=== PATIENT | male | born 1950 | race Caucasian/White ===

== ENCOUNTER 2022-12-23 02:36 | Inpatient (IN) | payer OTHER ==
[~2022-12-23] VITALS: Ht 170.2 cm; Wt 88.9 kg
[2022-12-23] VITALS (11 sets, daily range): BP systolic 76–197; BP diastolic 38–111
--- NOTE | 2022-12-23 02:36 | NUR ---
81 Y/O M presents with SOB x1week. upon arrival [facility] stated pt was seen at [facility] last week with no diagnosis. pt came from home, A&Ox3 and denies any respiratory issues. PMH-pt denies allergies-unobtainable meds-unobtainable
--- NOTE | 2022-12-23 02:36 | NUR ---
PT BIBA ALS BED 7
--- NOTE | 2022-12-23 02:36 | NUR ---
RT at bedside
[2022-12-23] MEDS ORDERED: methylPREDNISolone SS 125 MG/2 ML VIAL IVP ONE (02:45)
[2022-12-23] MEDS ORDERED: ALBUTEROL 0.083% 2.5 MG/3 ML NEBU INH ONE (02:45)
--- NOTE | 2022-12-23 02:50 | NUR ---
labs at bedside
--- NOTE | 2022-12-23 02:50 | NUR ---
xray at bedside
[2022-12-23 03:12] LABS: BASOPHILS # (AUTO) 0.2 K/uL (0.00-0.22); BASOPHILS % (AUTO) 1.7 % (0.0-2.0); EOSINOPHILS # (AUTO) 0.2 K/uL (0-0.4); EOSINOPHILS % (AUTO) 1.6 % (0.0-4.0); HEMATOCRIT 22.8 % (36-52); LYMPHOCYTES # (AUTO) 4.1 K/uL (2.0-11.5); LYMPHOCYTES % (AUTO) 35.8 % (20.5-51.1); MEAN CORPUSCULAR HEMOGLOBIN 30 pg (27-31); MEAN CORPUSCULAR HGB CONC 30 g/dL (33-37); MEAN CORPUSCULAR VOLUME 101.3 fL (80-94); MONOCYTES # (AUTO) 0.4 K/uL (0.8-1.0); MONOCYTES % (AUTO) 3.1 % (1.7-9.3); NEUTROPHILS # (AUTO) 6.6 K/uL (1.8-7.7); NEUTROPHILS % (AUTO) 57.8 % (42.2-75.2); PLATELET COUNT (AUTO) 292 K/uL (140-450); RED BLOOD CELL COUNT(AUTO) 2.25 MIL/uL (4.20-6.10); RED CELL DISTRIBUTION WIDTH 18.3 % (11.6-13.7); WHITE BLOOD COUNT (AUTO) 11.5 K/uL (4.8-10.8)
[2022-12-23 03:19] LABS: HEMOGLOBIN 6.8 g/dL (12.0-18.0)
[2022-12-23] MEDS ORDERED: cefTRIAXone 2,000 MG in DEXTROSE 5% 100 ML IV ONE (03:25)
[2022-12-23] MEDS ORDERED: cefTRIAXone 2,000 MG VIAL ONE (03:30)
--- NOTE | 2022-12-23 03:32 | NUR ---
PT CAME IN ON BIPAP. DUE TO ABG RESULTS PT WAS DOWNGRADED TO 3L NASAL CANNULA. WILL CONTINUE TO MONITOR.
[2022-12-23 04:00] LABS: ALBUMIN 2.7 g/dL (3.4-5.0); ANION GAP 21.7 (8-16); ASPARTATE AMINOTRANSFERASE 38 U/L (15-37); CARBON DIOXIDE 11.8 mmol/L (21-32); CHLORIDE 116 mmol/L (98-107); CREATININE 1.5 mg/dL (0.6-1.3); GLUCOSE 202 mg/dL (74-106); POTASSIUM 4.5 mmol/L (3.5-5.1); TOTAL BILIRUBIN 0.5 mg/dL (0.0-1.0); UREA NITROGEN, BLOOD 33 mg/dL (7-18)
[2022-12-23 04:09] LABS: SODIUM SERUM 145 mmol/L (136-145)
[2022-12-23 04:17] LABS: PROTHROMBIN TIME 12.7 secs (10.8-13.4)
--- NOTE | 2022-12-23 04:24 | NUR ---
blood consent signed by pt. pt AAOx4 at this time. Consent in chart
[2022-12-23] MEDS ORDERED: NACL 0.9% 2,000 ML IV ONE (04:45)
--- NOTE | 2022-12-23 06:15 | NUR ---
UA collected and sent to lab
[2022-12-23] MEDS ORDERED: HYDROcodone/APAP 5/325 MG 1 TAB TAB PO PRN (06:20)
[2022-12-23] MEDS ORDERED: POTASSIUM CHLORIDE 10 MEQ TABER PO PRN (06:20)
[2022-12-23] MEDS ORDERED: MAGNESIUM OXIDE 400 MG TAB PO PRN (06:20)
[2022-12-23] MEDS ORDERED: NACL 0.9% 500 ML IV SCH (06:30)
[2022-12-23] MEDS: BUDESONIDE 0.5 MG/2 ML NEBU INH SCH (06:54)
--- NOTE | 2022-12-23 06:58 | NUR ---
RT at bedside
[2022-12-23] MEDS ORDERED: AZITHROMYCIN 500 MG INJ VIAL IV ONE (07:12)
[2022-12-23] MEDS: AZITHROMYCIN 500 MG in DEXTROSE 5% 250 ML IV SCH (07:16)
--- NOTE | 2022-12-23 07:29 | NUR ---
Pt report given to Christiana PHILLIPS. Transfer of care at this time.
[2022-12-23] MEDS: IPRATROPIUM 0.02% 0.5 MG/2.5 ML NEBU INH SCH ×4 (07:30→20:00)
[2022-12-23] MEDS: ALBUTEROL 0.083% 2.5 MG/3 ML NEBU INH SCH ×3 (07:30→20:00)
--- NOTE | 2022-12-23 07:30 | NUR ---
REPORT RECEIVED FROM JOHN PHILLIPS. ASSUMED CARE AT THIS TIME
--- NOTE | 2022-12-23 07:32 | NUR ---
ABRAHAM held per PM NURSE. "2G ALREADY GIVEN". pharmacy called - no answer.
[2022-12-23] MEDS ORDERED: ATEN100T2 PO (07:44)
[2022-12-23] MEDS ORDERED: CLON-553 PO (07:44)
[2022-12-23] MEDS ORDERED: HYDR100T65 PO (07:44)
[2022-12-23] MEDS ORDERED: LEVO0.1T19 PO (07:44)
--- NOTE | 2022-12-23 07:50 | NUR ---
Patient will be admitted to care of MD CHANEY. Admited to TELE. Will go to room 111B. Belongings list completed. Report to BERNADETTE STILL .
[2022-12-23 08:00] LABS: APPEARANCE,URINE HAZY (CLEAR); BILIRUBIN,URINE NEGATIVE (NEGATIVE); BLOOD, URINE TRACE-I (NEGATIVE); COLOR,URINE YELLOW (YELLOW); LEUKOCYTE ESTERASE ,URINE NEGATIVE (NEGATIVE); NITRITE, URINE NEGATIVE (NEGATIVE); UGLUCOSE NEGATIVE (NEGATIVE)
[2022-12-23 08:18] LABS: RBC,URINE NONE SEEN /HPF (0-5); URINE AMORPHOUS URATE 1+ /HPF (None Seen); WBC,URINE 16-25 (MOD) /HPF (0-5)
--- NOTE | 2022-12-23 08:30 | NUR ---
NOTIFIED DR OF BLOOD IN PTS STOOL. LARGE AMOUNT OF STOOL AND BLOOD. PT STATED THAT HE HAS A ENDOSCOPY AND COLONOSCOPY DONE A WEEK AGO AT [facility] AND THEY DID NOT FIND ANYTHING. PT IS SCHEDULED TO RECEIVE A BLOOD TRANSFUSION THIS MORNING. WILL CONTINUE TO MONITOR.
--- NOTE | 2022-12-23 11:14 | NUR ---
RECEIVED REPORT FROM ER NURSE FOR CONTINUITY OF CARE. PT STABLE UPON TRANSPORT AND NO SIGNS OF DISTRESS. PT IS A&OX4, ON 3L NC, SKIN INTACT, USES WALKER AT HOME BUT ON BED REST HERE DUE TO WEAKNESS AND IS ON A CARDIAC DIET. NO COMPLAINTS OF PAIN . PT HAS AN 20G IN HIS RAC AND A 20G IN HIS L FOREARM THAT ARE BOTH PATENT AND AND INTACT. ALL SAFETY MEASURES IN PLACE INCLUDING BED IN LOW POSITION AND CALL LIGHT WITHIN REACH. WILL CONTINUE TO MONITOR.
[2022-12-23] MEDS: methylPREDNISolone SS 40 MG/ML VIAL IVP SCH ×2 (12:34→18:03)
[2022-12-23] MEDS: MORPHINE SULFATE 4 MG/ML SYR IVP PRN ×2 (13:35→18:31)
--- NOTE | 2022-12-23 19:00 | NUR ---
CALLED INTO PTS ROOM DUE TO HIM STATING HE IS HAVING TROUBLE BREATHING AND NEEDS HELP. CHECK VITAL SIGNS AND THEY WERE WITHIN NORMAL LIMITS EXCEPT HR. CALLED RT AND MESSAGED THE DR TO NOTIFY DR OF ELEVATED HR. HAD TO CALL DR DUE TO PT BECOMING MORE AGITATED AND RECEIVED ORDERS FOR ATIVAN AND METOPROLOL. ADMINISTERED ATIVAN TO CALM THE PATIENT.
[2022-12-23] MEDS ORDERED: LORazepam 2 MG/ML VIAL IVP PRN (19:10)
[2022-12-23] MEDS ORDERED: LORazepam 2 MG/ML VIAL ONE (19:13)
--- NOTE | 2022-12-23 19:15 | NUR ---
ENDORSED PT TO TOP FRAME MAKER NURSE FOR CONTINUITY OF CARE. PT IS STABLE
--- NOTE | 2022-12-23 19:20 | NUR ---
RECEIVED PT FROM BERNADETTE STILL FOR CONTINUITY OF CARE. PT CONFUSED, VERY RESTLESS IN BED. PT HYPOXIC AND UNSTABLE AT 80'S ON ROOM AIR.. RT AT BEDSIDE PUTTING PT ON HI FLOW.PT BLOOD PRESSURE 157/133, HEART RATE ON TELE 160'S AFIB. ALL PRECAUTIONS IN PLACE. CALL LIGHT WITHIN REACH. WILL CLOSELY MONITOR
--- NOTE | 2022-12-23 19:38 | NUR ---
RECEIVED ORDER FROM DR. WALTERS TO TRANSFER PT TO ICU AND START JONATHON MARTÍNEZ.
--- NOTE | 2022-12-23 19:50 | NUR ---
TRANSFERRED PT TO ICU.PT REFUSING HI FLOW AND KEEPS ON REMOVING CANNULA. CALLED FAMILY, VIKKI THORPE, VOICEMAIL LEFT TO CALL BACK.
--- NOTE | 2022-12-23 20:00 | NUR ---
Received pt from [facility] due to shortness of breadth, hr 120's to 140's restlessness hypoxic drive very restless low O2 sat 60% to 70% inaccurate, but pt refused Bipap, high flow combative, education given, support implored but pt still refused, very unstable, unable to get to the family left several messages for them to call back. Bedside report received from Jemal STILL at the bedside mentioned low HGB 1 unit PRBC given is still low as at the time of transfer HGG [address] Robby Nagy consulted.
[2022-12-23] MEDS ORDERED: DILTIAZEM 125 MG in DEXTROSE 5% 100 ML IV SCH (20:10)
[2022-12-23] MEDS ORDERED: DILTIAZEM 125 MG/25 ML VIAL IV ONE (20:20)
[2022-12-23 20:29] LABS: BASOPHILS % (AUTO) 0.1 % (0.0-2.0); HEMATOCRIT 22.6 % (36-52); LYMPHOCYTES # (AUTO) 1.3 K/uL (2.0-11.5); LYMPHOCYTES % (AUTO) 7.5 % (20.5-51.1); MEAN CORPUSCULAR HEMOGLOBIN 30 pg (27-31); MEAN CORPUSCULAR HGB CONC 30 g/dL (33-37); MEAN CORPUSCULAR VOLUME 100.3 fL (80-94); MONOCYTES # (AUTO) 0.2 K/uL (0.8-1.0); MONOCYTES % (AUTO) 1.2 % (1.7-9.3); NEUTROPHILS # (AUTO) 15.2 K/uL (1.8-7.7); NEUTROPHILS % (AUTO) 91.2 % (42.2-75.2); PLATELET COUNT (AUTO) 302 K/uL (140-450); RED BLOOD CELL COUNT(AUTO) 2.25 MIL/uL (4.20-6.10)
--- NOTE | 2022-12-23 20:34 | NUR ---
pt intubated at the bedside by ER DR DOTTIE CHEUNG successfully, ETT to ventilator rate 28 FIO2 100% TV 500 PEEP 5 O2 sat 100% pt tolerating well
[2022-12-23 20:35] LABS: HEMOGLOBIN 6.7 g/dL (12.0-18.0)
[2022-12-23 20:36] LABS: WHITE BLOOD COUNT (AUTO) 16.7 K/uL (4.8-10.8)
--- NOTE | 2022-12-23 20:38 | NUR ---
Pt's called back updated by this RN and Dr Rocha,
[2022-12-23] MEDS ORDERED: EPINEPHrine PFS 0.1 MG/ML SYR IVP ONE (20:43)
[2022-12-23] MEDS ORDERED: CODE BLUE PARTICIPANT 1 EA MISC MC ONE (20:43)
[2022-12-23] MEDS ORDERED: METOPROLOL 25 MG TAB PO SCH (21:00)
--- NOTE | 2022-12-23 21:05 | NUR ---
Dr EVANS critical care MD consulted came to unit updated on pt's condition aware that pt coded twice, more labs orders added antibiotics, aware of low HGB also to transfuse 2 units. blood sugar checked was 151 also MD updates family over the phone
--- NOTE | 2022-12-23 21:35 | NUR ---
Pt's daughter here to visit pt updates on pt's condition and she said that her father does not want to intubated "be on the machine" Dr Bustamante discussed further with that pt is FULL CODE and there is no advance directives in the chart stating otherwise so reason pt intubated to protect his airway.
[2022-12-23] MEDS ORDERED: NOREPINEPHRINE 4 MG in DEXTROSE 5% 250 ML IV PRN (21:40)
[2022-12-23] MEDS ORDERED: SODIUM BICARBONATE 8.4% PFS 50 MEQ/50 ML SYR IVP SCH ×2 (21:50→22:15)
[2022-12-23] MEDS ORDERED: SODIUM BICARBONATE 8.4% PFS 50 MEQ/50 ML SYR IVP ONE (21:53)
[2022-12-23] MEDS ORDERED: DEXMEDETOMIDINE HCL 100 MCG/ML 2 ML VIAL IV ONE (22:11)
[2022-12-23] MEDS: OCTREOTIDE ACETATE 1.25 MG in NACL 0.9% 250 ML IV SCH (22:35)
[2022-12-23] MEDS ORDERED: VANCOMYCIN 1GM/DEXT 5% PREMIX 200 ML IV ONE (22:35)
[2022-12-23] MEDS: PANTOPRAZOLE 80 MG in NACL 0.9% 100 ML IVP SCH (22:35)
[2022-12-23] MEDS ORDERED: SODIUM BICARBONATE 8.4% 100 MEQ in DEXTROSE 5% 1,000 ML IV SCH (22:35)
[2022-12-23] MEDS ORDERED: VANCOMYCIN PER PHARMACY MC PRN (22:35)
[2022-12-23 22:39] LABS: BASOPHILS % (AUTO) 0.1 % (0.0-2.0); EOSINOPHILS # (AUTO) 0.1 K/uL (0-0.4); EOSINOPHILS % (AUTO) 0.4 % (0.0-4.0); LYMPHOCYTES # (AUTO) 1.7 K/uL (2.0-11.5); LYMPHOCYTES % (AUTO) 7.8 % (20.5-51.1); MEAN CORPUSCULAR HEMOGLOBIN 30 pg (27-31); MEAN CORPUSCULAR HGB CONC 30 g/dL (33-37); MEAN CORPUSCULAR VOLUME 100.8 fL (80-94); MONOCYTES # (AUTO) 0.6 K/uL (0.8-1.0); MONOCYTES % (AUTO) 2.6 % (1.7-9.3); NEUTROPHILS # (AUTO) 19.4 K/uL (1.8-7.7); NEUTROPHILS % (AUTO) 89.1 % (42.2-75.2); PLATELET COUNT (AUTO) 231 K/uL (140-450); RED BLOOD CELL COUNT(AUTO) 1.59 MIL/uL (4.20-6.10); RED CELL DISTRIBUTION WIDTH 18.4 % (11.6-13.7); WHITE BLOOD COUNT (AUTO) 21.8 K/uL (4.8-10.8)
[2022-12-23 22:43] LABS: HEMOGLOBIN 4.7 g/dL (12.0-18.0)
[2022-12-23] MEDS ORDERED: VANCOMYCIN 1,000 MG VIAL ONE (22:44)
[2022-12-23] MEDS ORDERED: PIPERACILLIN/TAZOBACTAM 3.375 GM VIAL IV ONE (22:45)
--- NOTE | 2022-12-23 22:50 | NUR ---
Dr Bustamante notified of the critical value CO2 8.8 CREATENINE 2.13 bun 56 iglesias inserted no urine output, pt received Sodium bicarb 3 ampules 300 meq plus started on Bicarb drip, NS 3liters total, low HGB 4.7 and HCT 16 total blood transfusion order PRBC 3 UNITS , Protonix and Sandostatin IV drip added, consults Dr Cardona, Human Resources Trainee and GI MD
[2022-12-23 22:54] LABS: ALBUMIN 2.2 g/dL (3.4-5.0); ASPARTATE AMINOTRANSFERASE 137 U/L (15-37); CHLORIDE 119 mmol/L (98-107); CREATININE 2.1 mg/dL (0.6-1.3); GLUCOSE 182 mg/dL (74-106); POTASSIUM 4.8 mmol/L (3.5-5.1); SODIUM SERUM 153 mmol/L (136-145); TOTAL BILIRUBIN 0.6 mg/dL (0.0-1.0); UREA NITROGEN, BLOOD 56 mg/dL (7-18)
[2022-12-23 22:58] LABS: CARBON DIOXIDE 8.8 mmol/L (21-32)
[2022-12-23] MEDS: PIPERACILLIN/TAZOBACTAM 3.375 GM in DEXTROSE 5% 50 ML IV SCH (23:00)
--- NOTE | 2022-12-23 23:00 | NUR ---
CODE BLUE Patient coded twice @2043 pm to 2054 then second 2056 to 2102 received total Epinephrine 2 amps successfully recovered, Levophed drip started, NS bolus 2 liters, Central line inserted by DR EVANS via right IJ ultrasound guided asceptic chest Xray done and order received OK to USE.
[2022-12-23 23:10] LABS: PROTHROMBIN TIME 15.5 secs (10.8-13.4)
--- NOTE | 2022-12-23 23:10 | NUR ---
Pt's son NICHOLAS and girlfriend visit at the bedside updates on pt's condition and emotional support for comfort. No complain said will be back in AM with pt's .
[2022-12-24] VITALS (31 sets, daily range): BP systolic 94–156; BP diastolic 34–112
[2022-12-24] MEDS ORDERED: OCTREOTIDE ACETATE 1000 MCG/5 ML VIAL ONE (00:55)
[2022-12-24] MEDS ORDERED: PANTOPRAZOLE 40 MG INJ VIAL ONE (00:56)
[2022-12-24] MEDS ORDERED: OCTREOTIDE ACETATE 100 MCG/ML VIAL ONE (01:11)
[2022-12-24] MEDS: methylPREDNISolone SS 40 MG/ML VIAL IVP SCH ×4 (01:56→18:44)
[2022-12-24] MEDS: PANTOPRAZOLE 80 MG in NACL 0.9% 100 ML IVP SCH ×3 (02:00→18:44)
[2022-12-24] MEDS: OCTREOTIDE ACETATE 1.25 MG in NACL 0.9% 250 ML IV SCH (02:00)
--- NOTE | 2022-12-24 04:00 | NUR ---
2 units PRBC given this shift no reaction noted pt tolerated well vitals signs stable pending one unit more to receive not ready from blood bank
[2022-12-24] MEDS ORDERED: fentaNYL citrate 0.05 MG/ML VIAL ONE (04:15)
[2022-12-24] MEDS: fentaNYL citrate 1 MG in NACL 0.9% 80 ML IV PRN ×2 (04:45→20:56)
--- NOTE | 2022-12-24 05:25 | NUR ---
[facility] (APPLIQUER ) PAGED PENDING CALL BACK TO REPORT CRITICAL ABG RESULTS
[2022-12-24 06:18] LABS: BASOPHILS % (AUTO) 0.1 % (0.0-2.0); HEMATOCRIT 27.8 % (36-52); HEMOGLOBIN 8.8 g/dL (12.0-18.0); LYMPHOCYTES # (AUTO) 1.1 K/uL (2.0-11.5); MEAN CORPUSCULAR HEMOGLOBIN 30 pg (27-31); MEAN CORPUSCULAR HGB CONC 32 g/dL (33-37); MEAN CORPUSCULAR VOLUME 93.6 fL (80-94); MONOCYTES # (AUTO) 1.7 K/uL (0.8-1.0); MONOCYTES % (AUTO) 4.6 % (1.7-9.3); NEUTROPHILS # (AUTO) 33.2 K/uL (1.8-7.7); PLATELET COUNT (AUTO) 186 K/uL (140-450); RED BLOOD CELL COUNT(AUTO) 2.97 MIL/uL (4.20-6.10)
[2022-12-24 06:33] LABS: WHITE BLOOD COUNT (AUTO) 36.1 K/uL (4.8-10.8)
[2022-12-24 07:13] LABS: LYMPHOCYTES % (AUTO) 3.2 % (20.5-51.1); NEUTROPHILS % (AUTO) 92.1 % (42.2-75.2)
--- NOTE | 2022-12-24 07:24 | NUR ---
Endorsed pt to Carolta RN at the bedside went over pt's condition, code blue incidence family aware, pending 1unit blood transfusion, sputum and urine culture. Checked the drips and rate, pt eyes open and follow verbal command nods his head, on ventilator FIO2 100% IV sites vitals signs stable no sign of distress no urine output Dr Bustamante aware total report for continuity of care.
[2022-12-24 07:28] LABS: ALBUMIN 2.1 g/dL (3.4-5.0); ANION GAP 27.7 (8-16); ASPARTATE AMINOTRANSFERASE 337 U/L (15-37); CARBON DIOXIDE 11.1 mmol/L (21-32); CHLORIDE 113 mmol/L (98-107); CREATININE 2.4 mg/dL (0.6-1.3); GLUCOSE 263 mg/dL (74-106); MAGNESIUM 1.5 mg/dL (1.8-2.4); POTASSIUM 4.8 mmol/L (3.5-5.1); SODIUM SERUM 147 mmol/L (136-145); TOTAL BILIRUBIN 0.7 mg/dL (0.0-1.0)
[2022-12-24 07:40] LABS: UREA NITROGEN, BLOOD 63 mg/dL (7-18)
[2022-12-24] MEDS: IPRATROPIUM 0.02% 0.5 MG/2.5 ML NEBU INH SCH ×5 (08:00→23:06)
[2022-12-24] MEDS: ALBUTEROL 0.083% 2.5 MG/3 ML NEBU INH SCH ×5 (08:00→23:06)
[2022-12-24] MEDS: BUDESONIDE 0.5 MG/2 ML NEBU INH SCH ×2 (08:00→19:30)
[2022-12-24 08:06] LABS: PROTHROMBIN TIME 13.6 secs (10.8-13.4)
[2022-12-24] MEDS: PROPOFOL 1000 MG/100 ML PREMIX 100 ML IV PRN ×2 (09:03→20:51)
--- NOTE | 2022-12-24 10:53 | NUR ---
PATIENT HAS BEEN SCREENED AND CATEGORIZED HIGH NUTRITION RISK. PATIENT WILL BE SEEN WITHIN 1-2 DAYS OF ADMISSION. 12/23/22-12/25/[address]
[2022-12-24] MEDS: AZITHROMYCIN 500 MG in DEXTROSE 5% 250 ML IV SCH (12:00)
[2022-12-24 12:22] LABS: BASOPHILS % (AUTO) 0.1 % (0.0-2.0); HEMATOCRIT 29.6 % (36-52); HEMOGLOBIN 9.7 g/dL (12.0-18.0); LYMPHOCYTES # (AUTO) 0.9 K/uL (2.0-11.5); MEAN CORPUSCULAR HEMOGLOBIN 29 pg (27-31); MEAN CORPUSCULAR HGB CONC 33 g/dL (33-37); MEAN CORPUSCULAR VOLUME 89.8 fL (80-94); MONOCYTES # (AUTO) 1.1 K/uL (0.8-1.0); MONOCYTES % (AUTO) 3.3 % (1.7-9.3); NEUTROPHILS # (AUTO) 30.8 K/uL (1.8-7.7); PLATELET COUNT (AUTO) 126 K/uL (140-450); RED CELL DISTRIBUTION WIDTH 17.3 % (11.6-13.7)
[2022-12-24 12:27] LABS: WHITE BLOOD COUNT (AUTO) 32.8 K/uL (4.8-10.8)
[2022-12-24 12:42] LABS: ALBUMIN 2.2 g/dL (3.4-5.0); ANION GAP 23.2 (8-16); ASPARTATE AMINOTRANSFERASE 313 U/L (15-37); CARBON DIOXIDE 15.4 mmol/L (21-32); CHLORIDE 114 mmol/L (98-107); CREATININE 2.8 mg/dL (0.6-1.3); GLUCOSE 178 mg/dL (74-106); POTASSIUM 4.6 mmol/L (3.5-5.1); SODIUM SERUM 148 mmol/L (136-145); TOTAL BILIRUBIN 1.1 mg/dL (0.0-1.0)
[2022-12-24 12:45] LABS: UREA NITROGEN, BLOOD 75 mg/dL (7-18)
[2022-12-24 12:50] LABS: LYMPHOCYTES % (AUTO) 2.7 % (20.5-51.1); NEUTROPHILS % (AUTO) 93.9 % (42.2-75.2)
[2022-12-24] MEDS: PIPERACILLIN/TAZOBACTAM 3.375 GM in DEXTROSE 5% 50 ML IV SCH ×2 (13:00→21:46)
[2022-12-24] MEDS: SODIUM BICARBONATE 8.4% 100 MEQ in DEXTROSE 5% 1,000 ML IV SCH (13:30)
--- NOTE | 2022-12-24 15:27 | NUR ---
12/24/22 RD INITIAL ASSESSMENT COMPLETED. PLEASE REFER TO NUTRITION ASSESSMENT UNDER CARE ACTIVITY FOR ESTIMATED NUTRITIONAL NEEDS. 1. CONTINUE GLUCERNA @ 60 ML/HR; FWF 50 ML Q6H PT TOLERATES PER MD. -IF GLUCERNA NOT AVAILABLE DUE TO BACKORDERED GLUCERNA, RECOMMEND VITAL AF 1.2 WITH A GOAL RATE OF 60 ML/HR, STARTING AT 10 ML/HR AND INCREASING BY 10 ML Q4H UNTIL GOAL RATE IS REACHED;FWF 200 ML Q8H OR PER MD 2. MONITOR FOR GI SYMPTOMS. 3. RD TO FOLLOW-UP 2-3 DAYS, HIGH RISK ZAYDA CATES RD
--- NOTE | 2022-12-24 15:42 | NUR ---
Reported ABG results to Dr. Bustamante. Per Dr. Bustamante, drop rate down to 24. RT made aware.
--- NOTE | 2022-12-24 18:50 | NUR ---
DR. GR ROUNDING AT BEDSIDE. ORDERS RECEIVED FOR 25% ALBUMIN 100ML ONCE, METOLAZONE 10MG DAILY, LASIX 100MG IVP ONCE, LASIX DRIP AT 20MG/HR. AFTER SIX HOURS ON LASIX DRIP, IF PT IS NOT MAKING MORE THAN 50ML/HR OF URINE, STOP LASIX DRIP AND NOTIFY DR. GR TO GET DIALYSIS ORDERS.
[2022-12-24] MEDS ORDERED: VANCOMYCIN 1.25GM PREMIX 250 ML IV SCH (19:00)
[2022-12-24] MEDS ORDERED: ALBUMIN HUMAN 25% 100 ML IV ONE (19:15)
[2022-12-24] MEDS: FUROSEMIDE 20 MG/2 ML VIAL IVP ONE (19:15)
--- NOTE | 2022-12-24 20:02 | NUR ---
rECEIVED REPOR, THE PATIENT IS SADATED, WITH FANTANL AT 0.6,. hE IS IN RESTRAINTPROTONIX INFUSING AT 8MCG /HR, SANDOSTADIN WILL COMPLETED FOR THE LAST BAG, NS AT 75ML/HR, NEED TO START LASIX AND OG TUBE FEEDING PER DAY SHIFT RN.
--- NOTE | 2022-12-24 20:06 | NUR ---
PER ABG RESULTS, RR DROPPED FROM 28 TO 24 ON VENTILATOR SETTINGS. RN AWARE.
[2022-12-24] MEDS ORDERED: FUROSEMIDE 100 MG/10 ML VIAL ONE ×2 (20:45→20:57)
[2022-12-24] MEDS: FUROSEMIDE 100 MG in DEXTROSE 5% 90 ML IV SCH ×2 (21:19→21:42)
[2022-12-24] MEDS: LACTULOSE 20 GM/30 ML UDC PO SCH (21:21)
[2022-12-24 21:41] LABS: ALBUMIN 2.6 g/dL (3.4-5.0); ANION GAP 23.1 (8-16); ASPARTATE AMINOTRANSFERASE 247 U/L (15-37); CARBON DIOXIDE 15.7 mmol/L (21-32); CHLORIDE 113 mmol/L (98-107); GLUCOSE 159 mg/dL (74-106); POTASSIUM 4.8 mmol/L (3.5-5.1); SODIUM SERUM 147 mmol/L (136-145); TOTAL BILIRUBIN 0.7 mg/dL (0.0-1.0)
[2022-12-24 21:44] LABS: HEMOGLOBIN 8.7 g/dL (12.0-18.0); LYMPHOCYTES % (AUTO) 2.8 % (20.5-51.1); MEAN CORPUSCULAR HEMOGLOBIN 28 pg (27-31); MEAN CORPUSCULAR HGB CONC 31 g/dL (33-37); MEAN CORPUSCULAR VOLUME 91.8 fL (80-94); MONOCYTES % (AUTO) 2.6 % (1.7-9.3); NEUTROPHILS # (AUTO) 34.6 K/uL (1.8-7.7); NEUTROPHILS % (AUTO) 94.6 % (42.2-75.2); PLATELET COUNT (AUTO) 135 K/uL (140-450); RED BLOOD CELL COUNT(AUTO) 3.05 MIL/uL (4.20-6.10); RED CELL DISTRIBUTION WIDTH 17.5 % (11.6-13.7); UREA NITROGEN, BLOOD 81 mg/dL (7-18)
[2022-12-24 21:48] LABS: WHITE BLOOD COUNT (AUTO) 36.6 K/uL (4.8-10.8)
[2022-12-25] VITALS (28 sets, daily range): BP systolic 81–150; BP diastolic 52–111
[2022-12-25] MEDS: methylPREDNISolone SS 40 MG/ML VIAL IVP SCH ×4 (00:08→20:12)
[2022-12-25] MEDS ORDERED: NOREPINEPHRINE 4 MG/4 ML VIAL IV ONE (00:36)
--- NOTE | 2022-12-25 02:40 | NUR ---
PATIENT HAS 75ML URINE AFTER 100MG LASIX DRIPS COMPLETED, DR. GR NOTIFED, SHE STATES THAT STOP THE LASIX DRIPS.
[2022-12-25] MEDS: IPRATROPIUM 0.02% 0.5 MG/2.5 ML NEBU INH SCH ×6 (03:30→23:11)
[2022-12-25] MEDS: ALBUTEROL 0.083% 2.5 MG/3 ML NEBU INH SCH ×6 (03:30→23:11)
[2022-12-25] MEDS ORDERED: fentaNYL citrate 0.05 MG/ML VIAL ONE ×2 (04:51→13:01)
[2022-12-25] MEDS: PIPERACILLIN/TAZOBACTAM 3.375 GM in DEXTROSE 5% 50 ML IV SCH ×3 (05:00→20:14)
[2022-12-25] MEDS: AZITHROMYCIN 500 MG in DEXTROSE 5% 250 ML IV SCH (06:59)
[2022-12-25 07:07] LABS: FOLIC ACID 8.3 ng/mL (>3.0)
--- NOTE | 2022-12-25 07:30 | NUR ---
Received report from voltage tester nurse Jarred. Received pt sedated. ETT to vent settings AC VC TV 500 rate 24 PEEP 5 FiO2@24%. A. Fib on monitor. OG-tube intact and patent infusing Vital @40ml/hr with FWF 50ml Q6hr. Beckman catheter in place and draining to gravity. Central line on Right IJ intact and patent infusing Fentanyl@ 2.5mcg/kg/hr, Propofol @10mcg/kg/min, Levophed@8mcg/min, and Sodium Bicarb@75ml/hr. Bilat soft wrist restraints in place with no signs of injury. Safety precautions in place.
[2022-12-25 07:44] LABS: ALBUMIN 2.7 g/dL (3.4-5.0); ANION GAP 22.7 (8-16); ASPARTATE AMINOTRANSFERASE 146 U/L (15-37); CARBON DIOXIDE 15.1 mmol/L (21-32); CHLORIDE 111 mmol/L (98-107); CREATININE 3.5 mg/dL (0.6-1.3); GLUCOSE 162 mg/dL (74-106); MAGNESIUM 1.4 mg/dL (1.8-2.4); POTASSIUM 4.8 mmol/L (3.5-5.1); SODIUM SERUM 144 mmol/L (136-145); TOTAL BILIRUBIN 0.5 mg/dL (0.0-1.0)
[2022-12-25 07:46] LABS: UREA NITROGEN, BLOOD 99 mg/dL (7-18)
[2022-12-25] MEDS: MAG SULF 2000 MG/WATER PREMIX 50 ML IV PRN (07:57)
[2022-12-25] MEDS: LACTULOSE 20 GM/30 ML UDC PO SCH ×2 (08:27→20:12)
[2022-12-25] MEDS: PANTOPRAZOLE 80 MG in NACL 0.9% 100 ML IVP SCH (08:27)
[2022-12-25 08:28] LABS: RED BLOOD CELL COUNT(AUTO) 2.05 MIL/uL (4.20-6.10)
[2022-12-25 08:31] LABS: MEAN CORPUSCULAR HEMOGLOBIN 29 pg (27-31); MEAN CORPUSCULAR HGB CONC 32 g/dL (33-37); MEAN CORPUSCULAR VOLUME 89.6 fL (80-94); PLATELET COUNT (AUTO) 106 K/uL (140-450); RED CELL DISTRIBUTION WIDTH 17.3 % (11.6-13.7)
--- NOTE | 2022-12-25 08:46 | NUR ---
DC PLANNIN YRS OLD MALE PATIENT WAS ADMITTED FROM HOME WITH A DX OF COPD EXACERBATION. PATIENT HAS A HX OF CHRONIC A-FIB, HTN, ANEMIA AND HYPOTHYROIDISM. PATIENT INTUBATED SEDATED FI02 24% . H/H 5.9/18.4 WBC 30.[address] LADD PERFORMED FOR POSSIBLE EGD SHOWED VASCULAR LESION IN THE SECOND AND 3RD PART OF DUODENUM AND SUCCESSFUL CONTROL WITH THE HEMOCLIPS AND EPINEPHRIN INJECTION. NEPHRO CONSULTED FOR HEMODIALYSIS . ON LEVOPHED, PROPOFOL ,FENTANYL DRIPS AND IV ABX ZOSYN AND ZITHROMAX. NEPHRO GI AND PULMO FOLLOWING. DC PLAN PER PATIENT RESPOND TO THE TREATMENT. CM TO FOLLOW Addendum: 12/27/22 at 0905 by Anabella Jama RN DC PLANNING: PATIENT STILL INTUBATED SEDATED FIO2 21%. WBC 23.5 H/H 9.5/29.0 CONTINUE IV ABX ZOSYN AND ZITHROMAX AND IV FERRLECIT. ON LEVOPHED AND PROPOFOL DRIP. GI,PULMO AND NEPHRO FOLLOWING. CM TO FOLLOW Addendum: 12/27/22 at 1437 by Anabella Jama RN DC PLANNING: PATIENT HAS AN ORDER TO TRANSFER TO [facility] FOR GI BLEEDING OF OBSCURE ORIGIN. FAXED TO [facility] , [facility], [facility] [place], [facility] . CM CALLED PATIENT'S UPDATED THE TRANSFER STATUS. CM TO FOLLOW Addendum: 12/27/22 at 1740 by Anabella Jama RN DC PLANNING: RECEIVED A CALL FROM [facility] AND [facility] STATED DECLINED THE CASE. STILL AWAITING FOR [facility] STILL REVIEWING. CM TO FOLLOW Addendum: 12/28/22 at 1210 by Anabella Jama RN DC PLANNING: RECEIVED A MESSAGE FROM [facility] NAME TYREE STATED THEIR GI DECLINED THE CASE STATED PT'S NEEDS TERTIARY CARE. CALLED [facility] STATED SHE HAS 23 PATIENT WAITING FOR THE BED AND HE IS ON THE LIST [facility] STATED THEY ARE ACCEPTING TRAUMA , NSTEMI AT THIS TIME THEY ARE FULL AND TO CALL BACK AT 2PM. CALLED PT'S ROSALEE UPDATED THE SITUATION, SHE STATED WILL REACH OUT HIS PCP DR DAWSON TO HELP WITH THE TRANSFER [place] CM TO FOLLOW Addendum: 12/28/22 at 1410 by Anabella Jama RN DC PLANNING: CALLED PT'S INSURANCE [employer] SPOKE WITH CLARY STATED TO FAX IT TO [facility] , STILL AWAITING FOR [facility]. ORDERED RAPID COVID TEST. CM TO FOLLOW Addendum: 12/28/22 at 1704 by Anabella Jama RN DC PLANNING: RECEIVED A CALL FROM [facility] SPOKE WITH [facility] AT TRANSFER [facility] STATED DUE TO INPT CAPACITY DECLINE THE CASE. [facility] NO BED AVAILABLE , [facility] [phone] SPOKE WITH AUDIE STATED THEY DON'T DO A DOUBLE LUMEN CLIP PROCEDURE FOR GI BLEED AND DECLINED THE CASE AND RECOMMENDED [facility] . FAXED TO [phone]. CM TO FOLLOW Addendum: 12/29/22 at 1150 by Anabella Jama RN DC PLANNING: CM CALLED [facility] SPOKE WITH ISHAN STATED NO BED AVAILABLE AT THIS TIME, CALLED [facility] SPOKE WITH JESUS STATED THEY ARE AT THEIR CAPACITY. [facility] SPOKE WITH JANETH STATED THEIR GI DR DECLINED THE CASE. NOTIFIED PT'S VIKKI [phone] VERBALIZED UNDERSTANDING. CM TO FOLLOW Addendum: 01/02/23 at 1115 by Anabella Jama RN DC PLANNING: STILL INTUBATED SEDATED FIO2 21% PEEP 5. CONTINUED HEMODIALYSIS AND IV ABX ZOSYN AND ERYTHROMYCIN AND FERRLECIT IV. LAB 33.3 K+ 3.1 B/C 44/3.1 AND H/H 8.4 /25.4 ON RESTRAINTS. PULMO,NEPHRO, CARDIO AND GI FOLLOWING . DC PLAN PER PATIENT RESPOND TO THE TREATMENT. CM TO FOLLOW Addendum: 01/04/23 at 1236 by Anabella Jama RN DC PLANNING: PATIENT EXTUBATED ON FACE MASK. WBC 20.3 H/H STABLE 8.5/27.0 CONTINUED IV ABX ZOSYN CONTINUE HEMODIALYSIS. PULMO GI AND NEPHRO FOLLOWING. CM TO FOLLOW
[2022-12-25 08:47] LABS: HEMATOCRIT 18.4 % (36-52); HEMOGLOBIN 5.9 g/dL (12.0-18.0)
--- NOTE | 2022-12-25 08:47 | NUR ---
Received call from lab for critical results. Paged Dr. Bess. Awaiting for call back for orders.
[2022-12-25 08:56] LABS: EOSINOPHILS % (MANUAL) 1 % (0-4); LYMPHOCYTES % (MANUAL) 2 % (20-46); MONOCYTES % (MANUAL) 3 % (5-12)
[2022-12-25] MEDS ORDERED: metOLazone 5 MG TAB PO SCH (09:00)
--- NOTE | 2022-12-25 09:19 | NUR ---
Paged Dr. Bustamante regarding critical lab results and updates of melena last night per noc shift nurse. Per Dr. Bustamante, stop OG-tube feeding, contact Dr. Donato regarding EGD today, and new order RBC scan. Orders noted and carried out.
--- NOTE | 2022-12-25 09:30 | NUR ---
Dr. Acosta at bedside examining patient. Dr. Kay consulted for hemodialysis catheter placement and pt to start HD when placed.
[2022-12-25] MEDS ORDERED: NACL 0.9% 1,000 ML IV SCH (09:40)
[2022-12-25] MEDS ORDERED: CALCIUM GLUCONATE 10% 1,000 MG in NACL 0.9% 50 ML IV SCH (09:55)
[2022-12-25] MEDS ORDERED: CALCIUM GLUC 1 GM/50 mL NS BAG 50 ML IV SCH (10:00)
[2022-12-25] MEDS ORDERED: CALCIUM GLU 1 GM/100 mL NS BAG 100 ML IV SCH (10:00)
--- NOTE | 2022-12-25 11:44 | NUR ---
Dr. Bess at bedside examining patient. Gave updates. New order to renew Zosyn.
--- NOTE | 2022-12-25 11:52 | NUR ---
SKIN ASSESSMENT DONE. PT ADMIT WITH SKIN TEAR TO RIGHT FOREARM, AREA DRY, YELLOW THIN SCAR TISSUE 2X3X0.1CM, NO ODOR.CICI WOUND SKIN ECCHYMOSIS. LEFT ARM ECCHYMOSIS, TRUCK OF BODY AND ALL LIMBS COLS TO TOUCH. BLE MOTTLED INTACT SKIN. CAPILLARY REFILLED >3SEC. BILATERAL HEELS BLANCHABLE REDNESS. PT. WITH LOW VERA SCALE AT HIGH RISK, CONTINUE TO FOLLOW PRESSURE INJURY PREVENTION INTERVENTIONS. POC DISCUSSED WITH PRIMARY RN GARTH. -APPLY VERSATEL DRESSING TO RIGHT FOREARM/WRIST CHANGE Q5DAYS AND PRN IF SOILING. -APPLY HYDRAGUARD TO TRUNK OF BODY AND ALL LIMBS BID -APPLY FOAM DRESSING TO SACRALCOCCYX WITH OFFLOADING PREVENTION -POSITIONING: TURN AND REPOSITION PATIENT Q 2H OR SOONER USE PILLOWS TO KEEP BONY PROMINENCES FROM DIRECT CONTACT WITH SURFACES USE REPOSITIONING WEDGES TO PROVIDE 30-DEGREE ANGLE FOR SIDE LYING POSITIONS OFFLOADING OR FOAM DRESSING TO ALL TUBING TO PREVENT MEDICAL DEVICES RELATED PRESSURE INJURY -RE-EVALUATING AND MANAGING INCONTINENCE MONITOR SKIN CONDITION DURING POSITION CHANGE DO NOT MASSAGE REDNESS, BONY PROMINENCES FREQUENT CICI-CARE AND PROVIDE BARRIER CREAMS PRN IF SOILING MOISTURE CONTROL BY OFFER BED WOMACK/URINAL /ABSORBENT PAD TO WICK AND HOLD MOISTURE KEEP SKIN DRY AND PROTECT FROM FRICTION -MANAGE FRICTION/SHEAR/MOBILITY KEEP HOB AT THE LOWEST LEVEL OF ELEVATION NO MORE THAN 30 DEGREE UNLESS OTHERWISE CONTRAINDICATED USE LIFT SHEET OR TRANSFER DEVICE TO MOVE PATIENT AND PREVENT LATERAL SHEER. PROTECT HEELS, ELBOWS BONY PROMINENCES WITH SKIN BERRIES OR FOAM DRESSING IF EXPOSED TO FRICTION OFFLOAD BILATERAL HEELS BY PLACING PILLOWS UNDER CALVES AT ALL TIMES, UNLESS OTHERWISE CONTRAINDICATED -PRESSURE REDISTRIBUTION SURFACE THERAPY RONNIE ISOFLEX MATTRESS -NUTRITION: PLEASE FOLLOW RD RECOMMENDATIONS AND OFFER NUTRITION SUPPLEMENTS IF ORDERED. PLEASE CONTACT WOUND CARE NURSE FOR ANY QUESTION AND CHANGE OF WOUND CONDITION.
--- NOTE | 2022-12-25 12:12 | NUR ---
Dr. Donato at bedside examining patient. Pt for EGD.
[2022-12-25] MEDS: HYDRAGUARD CREAM TP SCH (12:36)
[2022-12-25] MEDS ORDERED: diphenhydrAMINE 50 MG/ML VIAL ONE (13:01)
[2022-12-25] MEDS ORDERED: MIDAZOLAM 5 MG/5 ML VIAL ONE (13:02)
--- NOTE | 2022-12-25 13:05 | NUR ---
EGD done at bedside. on the phone with Dr. Donato and updated.
--- NOTE | 2022-12-25 13:30 | NUR ---
Nuclear med bleed scan at bedside per Dr. Donato ordered. Awaiting for completion of EGD.
[2022-12-25] MEDS: fentaNYL citrate - 50mL vial 2.5 MG in NACL 0.9% 200 ML IV PRN (13:34)
--- NOTE | 2022-12-25 13:40 | NUR ---
EGD completed. Attempted to call , but no answer. Left a voice message to call back for updates with call back number. Addendum: 12/25/22 at 1406 by Dora Barajas RN New order from Dr. Donato to restart tube feeding. CBC Q6hx4 after second unit of PRBC completed.
--- NOTE | 2022-12-25 13:41 | NUR ---
Dr. Donato cancelled nuclear med bleed scan.
[2022-12-25] MEDS ORDERED: GLUCAGON 1 MG VIAL ONE (13:50)
[2022-12-25] MEDS ORDERED: EPINEPHrine PFS 0.1 MG/ML SYR IVP ONE (13:50)
[2022-12-25] MEDS: BUDESONIDE 0.5 MG/2 ML NEBU INH SCH ×2 (14:09→19:30)
--- NOTE | 2022-12-25 14:10 | NUR ---
2 units of PRBC completed with no adverse reaction.
[2022-12-25] MEDS: PROPOFOL 1000 MG/100 ML PREMIX 100 ML IV PRN ×2 (14:23→20:21)
--- NOTE | 2022-12-25 14:30 | NUR ---
DC PLANNING ASSESSMENT COMPLETE PLEASE REFER TO ASSESSMENT FOR DETAILS VIKKI PARSONS TENTATIVE DC PLAN IS TO RETURN HOME WITH FAMILY PROVIDING TRANSPORTATION WHEN MEDICALLY STABLE. Addendum: 12/26/22 at 1617 by Chanel HARPER Amended: Links added.
--- NOTE | 2022-12-25 14:49 | NUR ---
Received phone call from Scar Humphrey and gave updates. All questions answered.
[2022-12-25] MEDS: SODIUM BICARBONATE 8.4% 100 MEQ in DEXTROSE 5% 1,000 ML IV SCH (17:50)
--- NOTE | 2022-12-25 18:45 | NUR ---
Dr. Bustamante at bedside. New order to discontinue sodium bicarb fluid.
--- NOTE | 2022-12-25 19:00 | NUR ---
Dr. Kay at bedside for dialysis catheter placement. Dialysis access site on left IJ. CXR at bedside and Dr. Kay viewed. Per ronnie Ferreira to use dialysis catheter.
--- NOTE | 2022-12-25 19:00 | NUR ---
1899: rec'd pt from TESSY John to assume plan of care. orally intubated with the same vent settings sats 100%. on diprivan, levophed and fentanyl drip. Pt's fullcode. 1914: HD started, first HD using [facility] neva cath that was inserted today by Dr. Kay. HD started while Dr. Kay still here. 2199: HD completed, no output, cleaning only. turned and repositioned. safety and skin protocol on progress. CONTINUE MONITOR>
[2022-12-25 19:10] LABS: HEMATOCRIT 25.7 % (36-52); HEMOGLOBIN 8.3 g/dL (12.0-18.0); LYMPHOCYTES # (AUTO) 0.5 K/uL (2.0-11.5); LYMPHOCYTES % (AUTO) 1.8 % (20.5-51.1); MEAN CORPUSCULAR HEMOGLOBIN 29 pg (27-31); MEAN CORPUSCULAR HGB CONC 32 g/dL (33-37); MEAN CORPUSCULAR VOLUME 90.4 fL (80-94); MONOCYTES # (AUTO) 0.8 K/uL (0.8-1.0); MONOCYTES % (AUTO) 2.9 % (1.7-9.3); NEUTROPHILS # (AUTO) 27.3 K/uL (1.8-7.7); NEUTROPHILS % (AUTO) 95.3 % (42.2-75.2); PLATELET COUNT (AUTO) 91 K/uL (140-450); RED BLOOD CELL COUNT(AUTO) 2.85 MIL/uL (4.20-6.10); RED CELL DISTRIBUTION WIDTH 15.8 % (11.6-13.7)
[2022-12-25 19:15] LABS: WHITE BLOOD COUNT (AUTO) 28.6 K/uL (4.8-10.8)
--- NOTE | 2022-12-25 19:15 | NUR ---
I CALLED PT. VIKKI DE LA FUENTE AND REPORTED THAT DIALYSIS CATHETER ALREADY IN PLACED AND HEMODIALYSIS PT. WILL BE STARTED NOW. PT. STATED OKAY AND SHE AND DAUGHTER WILL COME TO VISIT TOMORROW MORNING.
--- NOTE | 2022-12-25 19:15 | NUR ---
Report given to Rina. All questions answered.
[2022-12-25] MEDS: PANTOPRAZOLE 40 MG INJ VIAL IVP SCH (20:15)
[2022-12-26] VITALS (26 sets, daily range): BP systolic 76–139; BP diastolic 51–90
[2022-12-26 00:16] LABS: BASOPHILS # (AUTO) 0.3 K/uL (0.00-0.22); BASOPHILS % (AUTO) 0.9 % (0.0-2.0); HEMATOCRIT 26.7 % (36-52); HEMOGLOBIN 8.8 g/dL (12.0-18.0); LYMPHOCYTES # (AUTO) 0.7 K/uL (2.0-11.5); LYMPHOCYTES % (AUTO) 2.4 % (20.5-51.1); MEAN CORPUSCULAR HEMOGLOBIN 29 pg (27-31); MEAN CORPUSCULAR HGB CONC 33 g/dL (33-37); MEAN CORPUSCULAR VOLUME 88.6 fL (80-94); MONOCYTES # (AUTO) 1.1 K/uL (0.8-1.0); MONOCYTES % (AUTO) 3.5 % (1.7-9.3); NEUTROPHILS # (AUTO) 28.9 K/uL (1.8-7.7); NEUTROPHILS % (AUTO) 93.2 % (42.2-75.2); PLATELET COUNT (AUTO) 74 K/uL (140-450); RED BLOOD CELL COUNT(AUTO) 3.02 MIL/uL (4.20-6.10); RED CELL DISTRIBUTION WIDTH 15.5 % (11.6-13.7)
[2022-12-26] MEDS: methylPREDNISolone SS 40 MG/ML VIAL IVP SCH ×4 (00:19→21:40)
[2022-12-26] MEDS: HYDRAGUARD CREAM TP SCH ×2 (00:20→13:00)
[2022-12-26] MEDS: PROPOFOL 1000 MG/100 ML PREMIX 100 ML IV PRN ×4 (03:01→21:50)
[2022-12-26] MEDS: IPRATROPIUM 0.02% 0.5 MG/2.5 ML NEBU INH SCH ×5 (03:03→20:22)
[2022-12-26] MEDS: ALBUTEROL 0.083% 2.5 MG/3 ML NEBU INH SCH ×5 (03:03→20:22)
[2022-12-26] MEDS: PIPERACILLIN/TAZOBACTAM 3.375 GM in DEXTROSE 5% 50 ML IV SCH ×3 (05:00→21:40)
[2022-12-26] MEDS: fentaNYL citrate - 50mL vial 2.5 MG in NACL 0.9% 200 ML IV PRN ×2 (05:07→22:19)
[2022-12-26] MEDS: AZITHROMYCIN 500 MG in DEXTROSE 5% 250 ML IV SCH (05:28)
[2022-12-26 06:02] LABS: BASOPHILS # (AUTO) 0.1 K/uL (0.00-0.22); BASOPHILS % (AUTO) 0.5 % (0.0-2.0); HEMATOCRIT 23.4 % (36-52); HEMOGLOBIN 7.9 g/dL (12.0-18.0); LYMPHOCYTES # (AUTO) 0.7 K/uL (2.0-11.5); LYMPHOCYTES % (AUTO) 2.7 % (20.5-51.1); MEAN CORPUSCULAR HEMOGLOBIN 30 pg (27-31); MEAN CORPUSCULAR HGB CONC 34 g/dL (33-37); MONOCYTES # (AUTO) 0.9 K/uL (0.8-1.0); MONOCYTES % (AUTO) 3.7 % (1.7-9.3); NEUTROPHILS # (AUTO) 23.5 K/uL (1.8-7.7); NEUTROPHILS % (AUTO) 93.1 % (42.2-75.2); PLATELET COUNT (AUTO) 73 K/uL (140-450); RED BLOOD CELL COUNT(AUTO) 2.66 MIL/uL (4.20-6.10); RED CELL DISTRIBUTION WIDTH 15.9 % (11.6-13.7)
[2022-12-26 06:06] LABS: WHITE BLOOD COUNT (AUTO) 25.2 K/uL (4.8-10.8)
[2022-12-26 06:49] LABS: ALBUMIN 2.4 g/dL (3.4-5.0); ANION GAP 17.4 (8-16); ASPARTATE AMINOTRANSFERASE 41 U/L (15-37); CARBON DIOXIDE 22.6 mmol/L (21-32); CHLORIDE 106 mmol/L (98-107); CREATININE 2.9 mg/dL (0.6-1.3); GLUCOSE 147 mg/dL (74-106); MAGNESIUM 1.6 mg/dL (1.8-2.4); SODIUM SERUM 142 mmol/L (136-145); TOTAL BILIRUBIN 0.8 mg/dL (0.0-1.0)
--- NOTE | 2022-12-26 07:00 | NUR ---
ENDORSED PT TO RN INSAN TO ASSUME PLAN OF CARE. RESTRAINTS RENEWED BY SKY DIVERTESSY APARICIO. KEEP NPO DUE TO PT'S VOMITING COFFEE BROWN EMESIS. CONTINUE LEVO, DIPRIVAN AND FENTANYL
[2022-12-26 07:34] LABS: UREA NITROGEN, BLOOD 67 mg/dL (7-18)
[2022-12-26] MEDS: PANTOPRAZOLE 40 MG INJ VIAL IVP SCH ×2 (09:36→21:40)
[2022-12-26] MEDS: LACTULOSE 20 GM/30 ML UDC PO SCH ×2 (09:37→21:40)
[2022-12-26] MEDS ORDERED: VANCOMYCIN 1,000 MG in DEXTROSE 5% 250 ML IV SCH (10:00)
[2022-12-26] MEDS: MIDODRINE 5 MG TAB PO SCH ×2 (13:00→21:42)
[2022-12-26] MEDS: SODIUM FERRIC GLUCONATE 125 MG in NACL 0.9% 100 ML IV SCH (13:00)
[2022-12-26] MEDS: BUDESONIDE 0.5 MG/2 ML NEBU INH SCH ×2 (15:15→20:22)
--- NOTE | 2022-12-26 16:04 | NUR ---
12/26/22 RD FOLLOW UP COMPLETED PLEASE REFER TO NUTRITION ASSESSMENT UNDER CARE ACTIVITY FOR ESTIMATED NUTRITIONAL NEEDS. 1. RECOMMEND NEPRO AT GOAL RATE 45 ML/HR, FWF 50 ML Q6H TOLERATED PER MD -WITH CURRENT PROPOFOL RATE, PROVIDES 1080 ML VOLUME, 2422 KCAL, 87 GM PROTEIN AND 985 ML FREE WATER DAILY MEETING 100% ESTIMATED KCAL NEEDS AND 87% ESTIMATED PROTEIN NEEDS; ADEQUATE - START TF AT 1O ML/HR INCREASE BY 1O ML Q4H UNTIL GOAL IS REACHED TOLERATED 2. MONITOR GI SYMPTOMS, GASTRIC RESIDUALS AND NUTRITION RELATED LAB VALUES 3. CONSULT RD PRN 4. RD TO FOLLOW-UP 2-3 DAYS, HIGH RISK REVIEWED BY MARK OLMSTEAD RD
[2022-12-26 18:24] LABS: BASOPHILS % (AUTO) 0.2 % (0.0-2.0); HEMATOCRIT 20.6 % (36-52); LYMPHOCYTES # (AUTO) 0.6 K/uL (2.0-11.5); LYMPHOCYTES % (AUTO) 2.5 % (20.5-51.1); MEAN CORPUSCULAR HEMOGLOBIN 30 pg (27-31); MEAN CORPUSCULAR HGB CONC 33 g/dL (33-37); MEAN CORPUSCULAR VOLUME 89.9 fL (80-94); MONOCYTES # (AUTO) 0.7 K/uL (0.8-1.0); MONOCYTES % (AUTO) 3.2 % (1.7-9.3); NEUTROPHILS # (AUTO) 21.4 K/uL (1.8-7.7); NEUTROPHILS % (AUTO) 94.1 % (42.2-75.2); PLATELET COUNT (AUTO) 85 K/uL (140-450); RED BLOOD CELL COUNT(AUTO) 2.29 MIL/uL (4.20-6.10); RED CELL DISTRIBUTION WIDTH 16.3 % (11.6-13.7); WHITE BLOOD COUNT (AUTO) 22.8 K/uL (4.8-10.8)
[2022-12-26 18:26] LABS: HEMOGLOBIN 6.9 g/dL (12.0-18.0)
--- NOTE | 2022-12-26 18:40 | NUR ---
Dr. Bustamante made aware regarding Hemoglobin 6.9. Waiting for new orders.
[2022-12-27] VITALS (29 sets, daily range): BP systolic 83–143; BP diastolic 50–93
[2022-12-27] MEDS: ALBUTEROL 0.083% 2.5 MG/3 ML NEBU INH SCH ×7 (00:54→23:03)
[2022-12-27] MEDS: IPRATROPIUM 0.02% 0.5 MG/2.5 ML NEBU INH SCH ×7 (00:54→23:03)
[2022-12-27] MEDS: HYDRAGUARD CREAM TP SCH ×2 (04:31→13:36)
[2022-12-27] MEDS: PIPERACILLIN/TAZOBACTAM 3.375 GM in DEXTROSE 5% 50 ML IV SCH ×3 (05:09→20:10)
[2022-12-27] MEDS: PROPOFOL 1000 MG/100 ML PREMIX 100 ML IV PRN ×4 (05:22→22:07)
[2022-12-27 05:52] LABS: BASOPHILS % (AUTO) 0.2 % (0.0-2.0); HEMOGLOBIN 9.5 g/dL (12.0-18.0); LYMPHOCYTES # (AUTO) 0.6 K/uL (2.0-11.5); LYMPHOCYTES % (AUTO) 2.5 % (20.5-51.1); MEAN CORPUSCULAR HEMOGLOBIN 30 pg (27-31); MEAN CORPUSCULAR HGB CONC 33 g/dL (33-37); MEAN CORPUSCULAR VOLUME 89.9 fL (80-94); MONOCYTES # (AUTO) 0.8 K/uL (0.8-1.0); MONOCYTES % (AUTO) 3.6 % (1.7-9.3); NEUTROPHILS # (AUTO) 22.1 K/uL (1.8-7.7); NEUTROPHILS % (AUTO) 93.7 % (42.2-75.2); PLATELET COUNT (AUTO) 75 K/uL (140-450); RED BLOOD CELL COUNT(AUTO) 3.23 MIL/uL (4.20-6.10); RED CELL DISTRIBUTION WIDTH 16.6 % (11.6-13.7); WHITE BLOOD COUNT (AUTO) 23.5 K/uL (4.8-10.8)
[2022-12-27 06:22] LABS: ALBUMIN 2.3 g/dL (3.4-5.0); ANION GAP 19.9 (8-16); ASPARTATE AMINOTRANSFERASE 27 U/L (15-37); CARBON DIOXIDE 20.1 mmol/L (21-32); CHLORIDE 105 mmol/L (98-107); CREATININE 3.7 mg/dL (0.6-1.3); GLUCOSE 147 mg/dL (74-106); MAGNESIUM 2.1 mg/dL (1.8-2.4); SODIUM SERUM 141 mmol/L (136-145); TOTAL BILIRUBIN 0.7 mg/dL (0.0-1.0)
[2022-12-27] MEDS: AZITHROMYCIN 500 MG in DEXTROSE 5% 250 ML IV SCH (06:32)
[2022-12-27 06:39] LABS: UREA NITROGEN, BLOOD 100 mg/dL (7-18)
[2022-12-27] MEDS: BUDESONIDE 0.5 MG/2 ML NEBU INH SCH ×2 (06:48→19:10)
--- NOTE | 2022-12-27 07:15 | NUR ---
Received report on pt. Pt intubated on vent and sedated with fentanyl and diprivan drips, in no signs of acute distress or pain. OGT with feeding. Beckman with urine draining to gravity. Bilateral soft wrist restraints in place for safety.
--- NOTE | 2022-12-27 07:15 | NUR ---
RECEIVED PT OM ACVC F24,500,+5,21%. VENT WHEELS ARE LOCKED, PLUGGED INTO RED OUTLET. AMBUBAG AT BEDSIDE, ALARMS ARE SET AND AUDIBLE. ETT 7.5@25. SATURATION 100%, BREATH SOUNDS ARE CLEAR/DIMINISHED. WILL CONTINUE TO MONITOR.
[2022-12-27] MEDS: MIDODRINE 5 MG TAB PO SCH ×3 (07:43→20:07)
--- NOTE | 2022-12-27 08:15 | NUR ---
Pt noted with greater than 200 ml dark brown output from OGT. Feeding placed on hold and connected OGT to suction.
[2022-12-27] MEDS: LACTULOSE 20 GM/30 ML UDC PO SCH ×2 (08:51→14:14)
[2022-12-27] MEDS: PANTOPRAZOLE 40 MG INJ VIAL IVP SCH ×4 (08:53→23:53)
[2022-12-27] MEDS: methylPREDNISolone SS 40 MG/ML VIAL IVP SCH ×2 (08:53→20:10)
--- NOTE | 2022-12-27 10:41 | NUR ---
Updates given to pt's , Scar Humphrey.
[2022-12-27] MEDS ORDERED: diphenhydrAMINE 50 MG/ML VIAL ONE (12:11)
[2022-12-27] MEDS ORDERED: MIDAZOLAM 5 MG/5 ML VIAL ONE (12:11)
[2022-12-27] MEDS ORDERED: fentaNYL citrate 0.05 MG/ML VIAL ONE (12:11)
--- NOTE | 2022-12-27 12:35 | NUR ---
the immigration case worker ANNIE AWARE THAT DR. LADD ORDERED PT. TO TRANSFER TO A HIGHER LEVEL OF CARE, WILL CHECK AND SENT INFORMATION TO THE HOSPITALS.
--- NOTE | 2022-12-27 12:42 | NUR ---
Dr. Donato at bedside performing EGD, states pt needs to be transferred for higher level of care to find source of bleeding. Dr. Donato also informed regarding output from OG tube.
[2022-12-27] MEDS ORDERED: CALCIUM GLUC 1 GM/50 mL NS BAG 50 ML IV ONE (13:00)
[2022-12-27] MEDS ORDERED: CALCIUM GLUC 1 GM/50 mL NS BAG 50 ML IV SCH (13:15)
[2022-12-27] MEDS ORDERED: GLUCAGON 1 MG VIAL ONE (13:18)
[2022-12-27] MEDS: SODIUM FERRIC GLUCONATE 125 MG in NACL 0.9% 100 ML IV SCH (14:10)
--- NOTE | 2022-12-27 15:02 | NUR ---
Updates given to pt's Scar Humphrey regarding pt current condition.
--- NOTE | 2022-12-27 15:38 | NUR ---
1 unit FFP started on pt. Verified by 2 RNs.
[2022-12-27] MEDS: fentaNYL citrate - 50mL vial 2.5 MG in NACL 0.9% 200 ML IV PRN (15:45)
--- NOTE | 2022-12-27 15:53 | NUR ---
15 minutes into FFP transfusion: no adverse reactions noted, vitals stable.
[2022-12-27] MEDS ORDERED: ALBUMIN HUMAN 25% 100 ML IV ONE (15:59)
[2022-12-27] MEDS ORDERED: ALBUMIN HUMAN 25% 100 ML IV SCH (16:15)
[2022-12-27] MEDS: NOREPINEPHRINE 8 MG in DEXTROSE 5% 250 ML IV PRN (16:28)
[2022-12-27] MEDS ORDERED: ALBUMIN HUMAN 25% 50 ML IV SCH ×2 (16:30→17:00)
--- NOTE | 2022-12-27 16:49 | NUR ---
Pt's , Scar Humphrey, called unit, updates given. Scar also request for Dr. Donato to call back daughter Bhumi Hartley. Dr. Donato notified, aware, and states he will call when available.
[2022-12-27] MEDS ORDERED: DESMOPRESSIN 4 MCG/ML AMP IV ONE (17:05)
--- NOTE | 2022-12-27 17:10 | NUR ---
2nd unit FFP initiated, checks verified by 2 RNs.
--- NOTE | 2022-12-27 17:25 | NUR ---
15 minutes post FFP initiation: pt with no adverse reactions noted.
--- NOTE | 2022-12-27 17:59 | NUR ---
FFP transfusion complete, no adverse reactions noted. Pt in no signs of pain or distress.
[2022-12-27] MEDS ORDERED: DESMOPRESSIN IV SCH (18:00)
[2022-12-27] MEDS ORDERED: NACL 0.9% IV SCH (18:00)
[2022-12-27] MEDS ORDERED: DESMOPRESSIN 0.025 MG in NACL 0.9% 50 ML IV SCH (18:00)
--- NOTE | 2022-12-27 19:00 | NUR ---
Closing Pt in no signs of pain or distress. Required levophed during dialysis, BP with MAP greater than 65 currently, levophed off. Pt received 2 units FFP, DDVAP, and dialysis with 1.5 L out. Restraints remain in place for safety. OGT clamped, feeding held. Will endorse plan of care to RN.
--- NOTE | 2022-12-27 19:11 | NUR ---
RECEIVED REPORT FROM AM SHIFT. PATIENT WAS SEEN AND ASSESSED. PATIENT IS INTUBATED WITH ETT SIZE 7.5 AND SECURED WITH A BITING BLOCK ANCHOR-FAST 24cm @ GUM. PATIENT IS ON VENTILATOR SUPPORT. VENTILATOR PLUGGED IN RED OUTLET. VENTILATOR ALARMS SET APPROPRIATELY AND AUDIBLE TO ENVIRONMENT. AMBU BAG AT BEDSIDE. HEAD OF BED GREATER THAN 30 DEGREES. NOTICED ADEQUATE BILATERAL CHEST RISE AND FALL. PATIENT IS IN NO RESPIRATORY DISTRESS AT THIS TIME. VENT SETTINGS: AC/PRVC RR 24, TARGETED Vt 500, PEEP 5, FiO2 21% WITH SPO2 OF 100%. BILATERAL BREATH SOUNDS ON AUSCULTATION; UPPER LOBES: CLEAR LOWER LOBES: CLEAR/DIMINISHED SUCTIONED SCANT AMOUNT OF WHITE THIN SECRETIONS FROM ETT AND SMALL THIN ORALLY. HHN TX GIVEN ORDERED AND PT TOLERATED WELL WITHOUT ANY ADVERSE REACTION.
[2022-12-28] VITALS (31 sets, daily range): BP systolic 94–150; BP diastolic 44–95
[2022-12-28] MEDS: IPRATROPIUM 0.02% 0.5 MG/2.5 ML NEBU INH SCH ×5 (04:06→19:41)
[2022-12-28] MEDS: ALBUTEROL 0.083% 2.5 MG/3 ML NEBU INH SCH ×5 (04:06→19:41)
[2022-12-28] MEDS: HYDRAGUARD CREAM TP SCH ×2 (04:49→12:05)
[2022-12-28] MEDS: PIPERACILLIN/TAZOBACTAM 3.375 GM in DEXTROSE 5% 50 ML IV SCH ×3 (04:49→21:36)
[2022-12-28] MEDS: PROPOFOL 1000 MG/100 ML PREMIX 100 ML IV PRN ×3 (04:51→21:48)
[2022-12-28 05:18] LABS: BASOPHILS % (AUTO) 0.1 % (0.0-2.0); HEMATOCRIT 22.5 % (36-52); HEMOGLOBIN 7.5 g/dL (12.0-18.0); LYMPHOCYTES # (AUTO) 0.6 K/uL (2.0-11.5); LYMPHOCYTES % (AUTO) 2.7 % (20.5-51.1); MEAN CORPUSCULAR HEMOGLOBIN 30 pg (27-31); MEAN CORPUSCULAR HGB CONC 33 g/dL (33-37); MEAN CORPUSCULAR VOLUME 89.1 fL (80-94); MONOCYTES # (AUTO) 1.2 K/uL (0.8-1.0); MONOCYTES % (AUTO) 5.8 % (1.7-9.3); NEUTROPHILS # (AUTO) 19.5 K/uL (1.8-7.7); NEUTROPHILS % (AUTO) 91.4 % (42.2-75.2); PLATELET COUNT (AUTO) 79 K/uL (140-450); RED BLOOD CELL COUNT(AUTO) 2.52 MIL/uL (4.20-6.10); RED CELL DISTRIBUTION WIDTH 16.3 % (11.6-13.7); WHITE BLOOD COUNT (AUTO) 21.3 K/uL (4.8-10.8)
[2022-12-28 05:39] LABS: ALBUMIN 2.8 g/dL (3.4-5.0); ANION GAP 20.1 (8-16); ASPARTATE AMINOTRANSFERASE 29 U/L (15-37); CHLORIDE 98 mmol/L (98-107); CREATININE 2.9 mg/dL (0.6-1.3); GLUCOSE 123 mg/dL (74-106); MAGNESIUM 1.7 mg/dL (1.8-2.4); POTASSIUM 4.1 mmol/L (3.5-5.1); SODIUM SERUM 136 mmol/L (136-145); TOTAL BILIRUBIN 1.1 mg/dL (0.0-1.0); UREA NITROGEN, BLOOD 74 mg/dL (7-18)
[2022-12-28] MEDS: PANTOPRAZOLE 40 MG INJ VIAL IVP SCH ×3 (05:41→21:36)
[2022-12-28] MEDS: BUDESONIDE 0.5 MG/2 ML NEBU INH SCH ×2 (07:06→19:41)
[2022-12-28] MEDS: MIDODRINE 5 MG TAB PO SCH ×3 (07:18→19:41)
--- NOTE | 2022-12-28 07:20 | NUR ---
Received report on pt. Pt intubated and sedated with diprivan and fentanyl drips. OGT clamped. Bilateral soft wrist restraints in place for safety. Beckman output with minimal urine draining to gravity.
--- NOTE | 2022-12-28 08:15 | NUR ---
Dr. Donato called unit for updates on pt. Made aware of black BM from yesterday and current lab levels. Dr. Donato states to start tube feeding at rate of 10 ml/hr with goal of 30 ml/hr within 24 hours.
[2022-12-28] MEDS: methylPREDNISolone SS 40 MG/ML VIAL IVP SCH (08:28)
[2022-12-28] MEDS: LACTULOSE 20 GM/30 ML UDC PO SCH (08:28)
--- NOTE | 2022-12-28 08:30 | NUR ---
Pt's daughter Bhumi Hartley at bedside visiting. Updated regarding pt's current status.
[2022-12-28] MEDS: fentaNYL citrate - 50mL vial 2.5 MG in NACL 0.9% 200 ML IV PRN (09:00)
--- NOTE | 2022-12-28 10:10 | NUR ---
Pt's son at bedside visiting. Updates given.
--- NOTE | 2022-12-28 11:14 | NUR ---
Dr. Barnhart return call and was updated regarding pt status. States he will be rounding to assess pt condition before making decision to extubate. Addendum: 12/28/22 at 1122 by Agency 09 RN RN INCORRECT ENTRY: WRONG PATIENT
[2022-12-28] MEDS ORDERED: MAG SULF 2000 MG/WATER PREMIX 50 ML IV SCH (12:00)
--- NOTE | 2022-12-28 12:30 | NUR ---
Dr. Talavera rounding on pt. Informed regarding low urine output and pt updates. New orders made for 2 units PRBC and water flushes. States pt is scheduled for dialysis tomorrow.
--- NOTE | 2022-12-28 13:00 | NUR ---
Dr. Donato rounding on pt.
[2022-12-28] MEDS: SODIUM FERRIC GLUCONATE 125 MG in NACL 0.9% 100 ML IV SCH (13:03)
[2022-12-28] MEDS ORDERED: PANTOPRAZOLE 40 MG INJ VIAL IVP SCH (13:45)
[2022-12-28 14:07] LABS: BASOPHILS % (AUTO) 0.2 % (0.0-2.0); EOSINOPHILS # (AUTO) 0.1 K/uL (0-0.4); EOSINOPHILS % (AUTO) 0.6 % (0.0-4.0); HEMATOCRIT 23.2 % (36-52); HEMOGLOBIN 7.8 g/dL (12.0-18.0); LYMPHOCYTES # (AUTO) 0.7 K/uL (2.0-11.5); LYMPHOCYTES % (AUTO) 2.9 % (20.5-51.1); MEAN CORPUSCULAR HEMOGLOBIN 30 pg (27-31); MEAN CORPUSCULAR HGB CONC 34 g/dL (33-37); MEAN CORPUSCULAR VOLUME 89.8 fL (80-94); MONOCYTES # (AUTO) 1.5 K/uL (0.8-1.0); MONOCYTES % (AUTO) 6.3 % (1.7-9.3); NEUTROPHILS # (AUTO) 21.2 K/uL (1.8-7.7); PLATELET COUNT (AUTO) 96 K/uL (140-450); RED BLOOD CELL COUNT(AUTO) 2.58 MIL/uL (4.20-6.10); RED CELL DISTRIBUTION WIDTH 16.8 % (11.6-13.7); WHITE BLOOD COUNT (AUTO) 23.6 K/uL (4.8-10.8)
--- NOTE | 2022-12-28 15:02 | NUR ---
12/28/22 RD FOLLOW UP COMPLETED PLEASE REFER TO NUTRITION ASSESSMENT UNDER CARE ACTIVITY FOR ESTIMATED NUTRITIONAL NEEDS. 1. RECOMMEND NEPRO AT GOAL RATE 45 ML/HR, FWF 50 ML Q6H TOLERATED PER MD -WITH CURRENT PROPOFOL RATE, PROVIDES 1080 ML VOLUME, 2124 KCAL, 87 GM PROTEIN AND 985 ML FREE WATER DAILY MEETING 100% ESTIMATED KCAL AND PROTEIN NEEDS; ADEQUATE - START TF AT 1O ML/HR INCREASE BY 1O ML Q4H UNTIL GOAL IS REACHED TOLERATED 2. IF DIARRHEA PERSISTS, RECOMMEND BANATROL TID UNTIL SYMPTOMS RESOLVED 3. MONITOR GI SYMPTOMS, GASTRIC RESIDUALS AND NUTRITION RELATED LAB VALUES 4. CONSULT RD PRN 5. RD TO FOLLOW-UP 2-3 DAYS, HIGH RISK REVIEWED BY MARK OLMSTEAD RD
--- NOTE | 2022-12-28 15:15 | NUR ---
Blood transfusion: 1 unit PRBC transfusion initiated on pt. Checks verified with 2nd RN.
--- NOTE | 2022-12-28 15:30 | NUR ---
15 minutes after blood transfusion, no adverse reaction noted. Pt in no signs of acute pain or distress.
--- NOTE | 2022-12-28 17:15 | NUR ---
Blood transfusion complete for first unit. Pt still noted with dark bloody stool, myke care and linen change done. Protective foam dressing placed.
--- NOTE | 2022-12-28 18:15 | NUR ---
2nd unit of PRBC transfusion initiated, verified by 2nd RN.
--- NOTE | 2022-12-28 19:26 | NUR ---
Closing Pt remains intubated and sedated. Still receiving 2nd unit PRBC. Updates given to pt's Scar Humphrey. Endorsed plan of care to RN.
[2022-12-28 21:14] LABS: BASOPHILS % (AUTO) 0.1 % (0.0-2.0); EOSINOPHILS # (AUTO) 0.1 K/uL (0-0.4); EOSINOPHILS % (AUTO) 0.2 % (0.0-4.0); HEMATOCRIT 30.3 % (36-52); HEMOGLOBIN 10.3 g/dL (12.0-18.0); LYMPHOCYTES # (AUTO) 0.9 K/uL (2.0-11.5); LYMPHOCYTES % (AUTO) 3.4 % (20.5-51.1); MEAN CORPUSCULAR HEMOGLOBIN 30 pg (27-31); MEAN CORPUSCULAR HGB CONC 34 g/dL (33-37); MONOCYTES # (AUTO) 2.3 K/uL (0.8-1.0); NEUTROPHILS # (AUTO) 21.9 K/uL (1.8-7.7); NEUTROPHILS % (AUTO) 87.3 % (42.2-75.2); PLATELET COUNT (AUTO) 96 K/uL (140-450); RED BLOOD CELL COUNT(AUTO) 3.41 MIL/uL (4.20-6.10); RED CELL DISTRIBUTION WIDTH 16.1 % (11.6-13.7)
[2022-12-28 21:22] LABS: WHITE BLOOD COUNT (AUTO) 25.1 K/uL (4.8-10.8)
[2022-12-29] VITALS (30 sets, daily range): BP systolic 84–161; BP diastolic 56–98
[2022-12-29] MEDS: ALBUTEROL 0.083% 2.5 MG/3 ML NEBU INH SCH ×7 (00:42→22:47)
[2022-12-29] MEDS: IPRATROPIUM 0.02% 0.5 MG/2.5 ML NEBU INH SCH ×7 (00:42→22:47)
[2022-12-29] MEDS: HYDRAGUARD CREAM TP SCH ×2 (00:45→12:27)
[2022-12-29] MEDS: fentaNYL citrate - 50mL vial 2.5 MG in NACL 0.9% 200 ML IV PRN ×2 (00:51→15:50)
[2022-12-29] MEDS: PANTOPRAZOLE 40 MG INJ VIAL IVP SCH ×4 (04:52→20:52)
[2022-12-29] MEDS: PIPERACILLIN/TAZOBACTAM 3.375 GM in DEXTROSE 5% 50 ML IV SCH (05:09)
[2022-12-29 05:12] LABS: BASOPHILS # (AUTO) 0.1 K/uL (0.00-0.22); BASOPHILS % (AUTO) 0.2 % (0.0-2.0); HEMOGLOBIN 9.7 g/dL (12.0-18.0); LYMPHOCYTES # (AUTO) 1.2 K/uL (2.0-11.5); MEAN CORPUSCULAR HEMOGLOBIN 30 pg (27-31); MEAN CORPUSCULAR HGB CONC 34 g/dL (33-37); MEAN CORPUSCULAR VOLUME 88.8 fL (80-94); MONOCYTES # (AUTO) 2.1 K/uL (0.8-1.0); MONOCYTES % (AUTO) 8.8 % (1.7-9.3); PLATELET COUNT (AUTO) 102 K/uL (140-450); RED BLOOD CELL COUNT(AUTO) 3.26 MIL/uL (4.20-6.10); RED CELL DISTRIBUTION WIDTH 16.3 % (11.6-13.7); WHITE BLOOD COUNT (AUTO) 24.4 K/uL (4.8-10.8)
[2022-12-29 06:07] LABS: ANION GAP 19.2 (8-16); CHLORIDE 101 mmol/L (98-107); CREATININE 3.7 mg/dL (0.6-1.3); GLUCOSE 114 mg/dL (74-106); POTASSIUM 4.2 mmol/L (3.5-5.1); SODIUM SERUM 138 mmol/L (136-145)
[2022-12-29 06:08] LABS: UREA NITROGEN, BLOOD 89 mg/dL (7-18)
[2022-12-29 06:11] LABS: MAGNESIUM 2.1 mg/dL (1.8-2.4); PHOSPHORUS 5.8 mg/dL (2.5-4.9)
[2022-12-29] MEDS: MIDODRINE 5 MG TAB PO SCH ×3 (07:00→19:00)
--- NOTE | 2022-12-29 07:10 | NUR ---
RECEIVED PT ON PRVC 500,24,+5.21%. VENT WHEELS ARE LOCKED, PLUGGED INTO RED OUTLET, AMBUBAG AT BEDSIDE, ALARMS ARE SET AND AUDIBLE THE NURSES STATION. BREATH SOUNDS WERE CLEAR WITH CRACKLES AT THE BASES. SATURATION WAS 100%. WILL CONTINUE TO MONITOR.
--- NOTE | 2022-12-29 07:15 | NUR ---
Received report on pt. Pt intubated and sedated with diprivan and fentanyl drips. Pt in no signs of pain or distress. OGT with feeding 30 ml/hr goal rate per Dr. Donato's orders. Beckman noted with urine output draining to gravity. BUE with weeping edema and skin tears covered with dressing. Heels offloaded with pillows. Bilateral soft wrist restraints in place for safety, skin intact.
[2022-12-29] MEDS: BUDESONIDE 0.5 MG/2 ML NEBU INH SCH ×2 (07:30→19:16)
--- NOTE | 2022-12-29 08:00 | NUR ---
Pt noted with large amount of melena. Perform myke care and linen change. Foam dressing on sacrum for protection, skin intact. Applied hydraguard to perineal and sacral areas.
[2022-12-29] MEDS: LACTULOSE 20 GM/30 ML UDC PO SCH (08:02)
--- NOTE | 2022-12-29 12:00 | NUR ---
Pt noted with moderate amount melena BM, perform myke care and linen change. Hydraguard applied and scrotum offloaded with pillow case.
[2022-12-29] MEDS: ERYTHROMYCIN 100 MG in NACL 0.9% 100 ML IV SCH ×2 (12:24→18:31)
[2022-12-29] MEDS: SODIUM FERRIC GLUCONATE 125 MG in NACL 0.9% 100 ML IV SCH (12:25)
[2022-12-29] MEDS: PIPERACILLIN/TAZOBACTAM 2.25 GM in DEXTROSE 5% 50 ML IV SCH ×2 (13:42→20:51)
--- NOTE | 2022-12-29 13:50 | NUR ---
RECEIVED PT ON VENTILATOR SETTINGS PRVC 24 500 +5 21%. PT IS ON DIALYSIS. PT AIRWAY IS PATENT AND SECURE BY TUBE BLUE. VENTILATOR WHEELS ARE LOCKED AND VENTILATOR IS PLUGGED INTO RED OUTLET. AMBU BAG IS AT BEDSIDE. VENTILATOR ALARMS ARE SET AND AUDIBLE TO NURSE STATION. ROUTINE VENTILATOR CHECK PERFORMED. NO COMPLICATIONS NOTED AT THIS TIME. WILL CONTINUE TO MONITOR PT.
[2022-12-29 15:23] LABS: BASOPHILS # (AUTO) 0.1 K/uL (0.00-0.22); BASOPHILS % (AUTO) 0.3 % (0.0-2.0); EOSINOPHILS # (AUTO) 0.1 K/uL (0-0.4); EOSINOPHILS % (AUTO) 0.4 % (0.0-4.0); HEMATOCRIT 30.7 % (36-52); HEMOGLOBIN 10.4 g/dL (12.0-18.0); LYMPHOCYTES # (AUTO) 2.2 K/uL (2.0-11.5); LYMPHOCYTES % (AUTO) 7.9 % (20.5-51.1); MEAN CORPUSCULAR HEMOGLOBIN 30 pg (27-31); MEAN CORPUSCULAR HGB CONC 34 g/dL (33-37); MEAN CORPUSCULAR VOLUME 88.4 fL (80-94); MONOCYTES # (AUTO) 2.2 K/uL (0.8-1.0); MONOCYTES % (AUTO) 8.2 % (1.7-9.3); NEUTROPHILS # (AUTO) 22.7 K/uL (1.8-7.7); NEUTROPHILS % (AUTO) 83.2 % (42.2-75.2); PLATELET COUNT (AUTO) 74 K/uL (140-450); RED BLOOD CELL COUNT(AUTO) 3.47 MIL/uL (4.20-6.10); RED CELL DISTRIBUTION WIDTH 16.6 % (11.6-13.7)
[2022-12-29 15:47] LABS: WHITE BLOOD COUNT (AUTO) 27.3 K/uL (4.8-10.8)
--- NOTE | 2022-12-29 15:50 | NUR ---
WOUND CARE RE-EVALUATION NOTE: NO NEW SKIN BREAKS, BILATERAL UPPER EXTREMITIES WEEPING SKIN WITH ABSORBANT PAD IN PLACE AND ELEVATED WITH PILLOW. BLE REMAIN MOTTLED INTACT SKIN. BILATERAL HEELS BLANCHABLE REDNESS WITH PILLOWS OFFLOADING AND HEEL PROTECTORS IN PLACE. PT. WITH LOW VERA SCALE AT HIGH RISK, CONTINUE TO FOLLOW PRESSURE INJURY PREVENTION INTERVENTIONS. POC DISCUSSED WITH CHARGE NURSE YARED.
--- NOTE | 2022-12-29 15:54 | NUR ---
Pt noted with moderate amount BM, perform linen change and myke care, applied hydraguard and float scrotum with pillow case.
--- NOTE | 2022-12-29 16:15 | NUR ---
Pt off unit to CT with continuous monitoring and O2 accompanied by RNs and RTs.
--- NOTE | 2022-12-29 16:30 | NUR ---
Pt return to unit from CT. Situated to room. No BM noted.
--- NOTE | 2022-12-29 16:57 | NUR ---
TRANSFERRED PT TO AND FROM CT WITH AMBU BAG AND VENTILATOR ON STAND BY. RN KAZ, RT HIEN, NURSING STUDENTS AND STUDENTS' INSTRUCTOR ASSISTED WITH TRANSFER. NO COMPLICATIONS AT THIS TIME.
--- NOTE | 2022-12-29 18:50 | NUR ---
Pt remains intubated and sedated, no acute changes throughout shift. Awaiting results from CT abdomen. Beckman noted with urine output. Will endorse plan of care to RN.
--- NOTE | 2022-12-29 20:11 | NUR ---
Endorsed plan of care to RN
[2022-12-29] MEDS: SENNA 8.6 MG TAB PO SCH (20:52)
[2022-12-30] VITALS (27 sets, daily range): BP systolic 95–143; BP diastolic 50–83
[2022-12-30] MEDS: ERYTHROMYCIN 100 MG in NACL 0.9% 100 ML IV SCH ×4 (00:32→18:54)
[2022-12-30] MEDS: HYDRAGUARD CREAM TP SCH ×2 (00:33→12:49)
[2022-12-30] MEDS: PROPOFOL 1000 MG/100 ML PREMIX 100 ML IV PRN ×3 (00:38→20:09)
[2022-12-30] MEDS: IPRATROPIUM 0.02% 0.5 MG/2.5 ML NEBU INH SCH ×5 (03:07→18:56)
[2022-12-30] MEDS: ALBUTEROL 0.083% 2.5 MG/3 ML NEBU INH SCH ×5 (03:08→18:56)
[2022-12-30 05:16] LABS: ANION GAP 18.4 (8-16); CARBON DIOXIDE 21.3 mmol/L (21-32); CHLORIDE 103 mmol/L (98-107); CREATININE 3.4 mg/dL (0.6-1.3); GLUCOSE 83 mg/dL (74-106); POTASSIUM 3.7 mmol/L (3.5-5.1); SODIUM SERUM 139 mmol/L (136-145)
[2022-12-30 05:23] LABS: UREA NITROGEN, BLOOD 72 mg/dL (7-18)
[2022-12-30 05:31] LABS: BASOPHILS # (AUTO) 0.1 K/uL (0.00-0.22); BASOPHILS % (AUTO) 0.2 % (0.0-2.0); EOSINOPHILS # (AUTO) 0.4 K/uL (0-0.4); EOSINOPHILS % (AUTO) 1.5 % (0.0-4.0); HEMOGLOBIN 9.7 g/dL (12.0-18.0); LYMPHOCYTES # (AUTO) 1.9 K/uL (2.0-11.5); LYMPHOCYTES % (AUTO) 8.2 % (20.5-51.1); MEAN CORPUSCULAR HEMOGLOBIN 30 pg (27-31); MEAN CORPUSCULAR HGB CONC 34 g/dL (33-37); MEAN CORPUSCULAR VOLUME 89.4 fL (80-94); MONOCYTES # (AUTO) 1.5 K/uL (0.8-1.0); MONOCYTES % (AUTO) 6.6 % (1.7-9.3); NEUTROPHILS # (AUTO) 19.3 K/uL (1.8-7.7); PLATELET COUNT (AUTO) 82 K/uL (140-450); RED BLOOD CELL COUNT(AUTO) 3.24 MIL/uL (4.20-6.10); RED CELL DISTRIBUTION WIDTH 16.9 % (11.6-13.7); WHITE BLOOD COUNT (AUTO) 23.1 K/uL (4.8-10.8)
[2022-12-30] MEDS: PIPERACILLIN/TAZOBACTAM 2.25 GM in DEXTROSE 5% 50 ML IV SCH ×3 (06:07→20:51)
[2022-12-30] MEDS: MIDODRINE 5 MG TAB PO SCH ×3 (06:08→20:00)
[2022-12-30] MEDS: PANTOPRAZOLE 40 MG INJ VIAL IVP SCH ×3 (06:08→20:42)
[2022-12-30 06:11] LABS: NEUTROPHILS % (AUTO) 83.5 % (42.2-75.2)
--- NOTE | 2022-12-30 07:20 | NUR ---
RECEIVED PT FROM NIGHT RT. CURRENT VENT SETTING ARE PRVC 500,24,+5, 21%. VENT WHEELS ARE LOCKED, PLUGGED INTO RED OUTLET, AMBUBAG AT BEDSIDE, ALARMS ARE SET AND AUDIBLE TO THE NURSE STATION. WILL CONTINUE TO MONITOR.
[2022-12-30] MEDS: BUDESONIDE 0.5 MG/2 ML NEBU INH SCH ×2 (07:30→18:56)
[2022-12-30] MEDS ORDERED: VANCOMYCIN 1,000 MG in DEXTROSE 5% 250 ML IV SCH (10:00)
[2022-12-30] MEDS: fentaNYL citrate - 50mL vial 2.5 MG in NACL 0.9% 200 ML IV PRN (10:15)
--- NOTE | 2022-12-30 13:09 | NUR ---
12/30/22 RD FOLLOW UP COMPLETED PLEASE REFER TO NUTRITION ASSESSMENT UNDER CARE ACTIVITY FOR ESTIMATED NUTRITIONAL NEEDS. 1. RECOMMEND SWITCHING TO NEPRO AT GOAL RATE 40 ML/HR, FWF 50 ML Q6H -WITH CURRENT PROPOFOL RATE, PROVIDES 1080 ML VOLUME, 1907 KCAL, 78 GM PROTEIN AND 897 ML FREE WATER DAILY MEETING 95% ESTIMATED KCAL AND 98% ESTIMATED PROTEIN NEEDS; ADEQUATE -START TF AT 1O ML/HR INCREASE BY 1O ML Q4H UNTIL GOAL IS REACHED TOLERATED 2. MONITOR GI SYMPTOMS, GASTRIC RESIDUALS AND NUTRITION RELATED LAB VALUES 3. CONSULT RD PRN 4. RD TO FOLLOW-UP 2-3 DAYS, HIGH RISK MARK OLMSTEAD RD
[2022-12-30] MEDS: SODIUM FERRIC GLUCONATE 125 MG in NACL 0.9% 100 ML IV SCH (13:16)
[2022-12-30] MEDS ORDERED: POTASSIUM CHLORIDE 20% 40 MEQ/15 ML UDC GT SCH (13:45)
--- NOTE | 2022-12-30 19:50 | NUR ---
RECEIVED PT. FROM DAY SHIFT TESSY ENG. PT. ON ETT A/C PRVC RATE 24, FIO2 21%, TV 500,PEEP 5 AND O2 SAT 100%. EYES NOT REACTIVE TO LIGHT. PT. WITH RIGHT IJ TRIPLE LUMEN CENTRAL CATHETER INFUSING PROPOFOL DRIP 20MCG/KG/MIN, FENTANYL DRIP 2 MCG/KG/HR AND NS TKO.DIALYSIS PT. WITH LEFT JUGULAR XIOMARA CATHETER. PT. WITH ORAL GASTRIC TUBE IN PLACED, TOLERATING WELL, GASTRIC RESIDUAL 5ML, FEEDING RUNNING VITAL AF AT 30 ML/HR. PT.IS AFTRIAL FIBRILLATION ON THE MONITOR, HR 115. BILATERAL ARMS WEEPING, ELEVATED AND SUPPORTED WITH PILLOW. ALFRED CATHETER TO GRAVITY PATENT AND INTACT. URINE WITH CLEAR YELLOW COLOR. REPOSITIONED AND PLACED IN COMFORTABLE POSITION. BEDLOCK AND BED PLACED IN THE LOWEST HEIGHT. PROVIDED QUIET ENVIRONMENT. NO S/S OF RESPIRATORY DISTRESS AND NO S/S OF PAIN. WILL CONT. TO MONITOR.
[2022-12-30] MEDS: SENNA 8.6 MG TAB PO SCH (20:52)
--- NOTE | 2022-12-30 21:55 | NUR ---
LAB DRAWN BLOOD FOR CBC.
[2022-12-30 22:09] LABS: HEMOGLOBIN 9.2 g/dL (12.0-18.0); MEAN CORPUSCULAR HEMOGLOBIN 30 pg (27-31); MEAN CORPUSCULAR HGB CONC 33 g/dL (33-37); MEAN CORPUSCULAR VOLUME 91.7 fL (80-94); PLATELET COUNT (AUTO) 94 K/uL (140-450); RED BLOOD CELL COUNT(AUTO) 3.05 MIL/uL (4.20-6.10); RED CELL DISTRIBUTION WIDTH 17.5 % (11.6-13.7); WHITE BLOOD COUNT (AUTO) 22.1 K/uL (4.8-10.8)
[2022-12-30 22:47] LABS: EOSINOPHILS % (MANUAL) 1 % (0-4); LYMPHOCYTES % (MANUAL) 6 % (20-46); MONOCYTES % (MANUAL) 3 % (5-12)
[2022-12-31] VITALS (29 sets, daily range): BP systolic 70–143; BP diastolic 46–98
[2022-12-31] MEDS: ERYTHROMYCIN 100 MG in NACL 0.9% 100 ML IV SCH ×4 (00:40→17:20)
[2022-12-31] MEDS: HYDRAGUARD CREAM TP SCH ×2 (00:45→13:00)
[2022-12-31] MEDS: IPRATROPIUM 0.02% 0.5 MG/2.5 ML NEBU INH SCH ×5 (00:56→19:26)
[2022-12-31] MEDS: ALBUTEROL 0.083% 2.5 MG/3 ML NEBU INH SCH ×6 (00:56→19:27)
[2022-12-31] MEDS: fentaNYL citrate - 50mL vial 2.5 MG in NACL 0.9% 200 ML IV PRN (03:16)
[2022-12-31] MEDS: PIPERACILLIN/TAZOBACTAM 2.25 GM in DEXTROSE 5% 50 ML IV SCH ×3 (05:00→20:52)
[2022-12-31] MEDS: MIDODRINE 5 MG TAB PO SCH ×3 (06:34→18:42)
[2022-12-31] MEDS: PROPOFOL 1000 MG/100 ML PREMIX 100 ML IV PRN (07:06)
--- NOTE | 2022-12-31 07:51 | NUR ---
GOT REPORT FROM THE NIGHT NURSE, PT ONLY OPEN THE ERE, DRIP AND VENT IN THE PLACE.[id number]
[2022-12-31 09:25] LABS: BASOPHILS # (AUTO) 0.1 K/uL (0.00-0.22); BASOPHILS % (AUTO) 0.5 % (0.0-2.0); EOSINOPHILS # (AUTO) 0.9 K/uL (0-0.4); EOSINOPHILS % (AUTO) 3.3 % (0.0-4.0); HEMATOCRIT 29.3 % (36-52); HEMOGLOBIN 9.8 g/dL (12.0-18.0); LYMPHOCYTES # (AUTO) 1.5 K/uL (2.0-11.5); LYMPHOCYTES % (AUTO) 5.5 % (20.5-51.1); MEAN CORPUSCULAR HEMOGLOBIN 31 pg (27-31); MEAN CORPUSCULAR HGB CONC 34 g/dL (33-37); MEAN CORPUSCULAR VOLUME 91.1 fL (80-94); MONOCYTES # (AUTO) 1.3 K/uL (0.8-1.0); MONOCYTES % (AUTO) 4.9 % (1.7-9.3); NEUTROPHILS # (AUTO) 23.2 K/uL (1.8-7.7); NEUTROPHILS % (AUTO) 85.8 % (42.2-75.2); PLATELET COUNT (AUTO) 127 K/uL (140-450); RED BLOOD CELL COUNT(AUTO) 3.21 MIL/uL (4.20-6.10); RED CELL DISTRIBUTION WIDTH 18.5 % (11.6-13.7)
[2022-12-31] MEDS: PANTOPRAZOLE 40 MG INJ VIAL IVP SCH ×2 (09:27→20:52)
[2022-12-31 09:29] LABS: ANION GAP 23.1 (8-16); CHLORIDE 102 mmol/L (98-107); GLUCOSE 97 mg/dL (74-106); POTASSIUM 4.1 mmol/L (3.5-5.1); SODIUM SERUM 137 mmol/L (136-145)
[2022-12-31 09:35] LABS: CREATININE 4.3 mg/dL (0.6-1.3); UREA NITROGEN, BLOOD 75 mg/dL (7-18)
[2022-12-31] MEDS: SODIUM BICARBONATE 8.4% 150 MEQ in DEXTROSE 5% 1,000 ML IV SCH (10:50)
[2022-12-31] MEDS: SODIUM FERRIC GLUCONATE 125 MG in NACL 0.9% 100 ML IV SCH (13:00)
[2022-12-31] MEDS: DEXMEDETOMIDINE HCL 400 MCG in NACL 0.9% 96 ML IV PRN (13:11)
[2022-12-31] MEDS: BUDESONIDE 0.5 MG/2 ML NEBU INH SCH ×2 (14:50→19:27)
--- NOTE | 2022-12-31 15:09 | NUR ---
PATIENT ALERT, SBT WEANING EXERCISE (TWICE) CPAP 5/8 21%, PATIENT WENT APNEIC AFTER 2 MINUTES. PATIENT PLACED BACK ON FULL SUPPORT CURRENT SETTINGS. WILL CONTINUE TO MONITOR. RN AWARE.
--- NOTE | 2022-12-31 15:58 | NUR ---
PT IS WATCHING TV , SEEMS ALERT. [id number]
--- NOTE | 2022-12-31 16:48 | NUR ---
LEFT TUINAL CATH OF DIALYSIS DRESSING CHANGED, PT IS WATCHING TV AND SLEEPING.[id number]
--- NOTE | 2022-12-31 19:35 | NUR ---
RECEIVED PT. FROM DAY SHIFT TESSY ROTHMAN.PT. CONT. ON ETT TO VENT A/C PRVC RATE 24, FIO2 21%, TV 500, PEEP 5 AND O2 SAT 96%.PT. HR 108 ATRIAL FIBRILLATION IN THE MONITOR. RIGHT JUGULAR CENTRAL LINE INFUSING PRECEDEX 0.8 MCG/KG/HR, FENTANYL 0.5 MCG/KG/HR, SODIUM BICARB 80 ML/HR AND NS TKO. PT. RIGHT IJ CENTRAL LINE PATENT AND INTACT. NO S/S OF INFECTION. PT. SCHEDULE FOR HEMODIALYSIS TOMORROW. SITE TO LEFT JUGULAR XIOMARA CATHETER INTACT. OGT IN PLACED RUNNING VITAL AT 50 ML/HR AND WITH MINIMAL GASTRIC RESIDUAL 5 ML.BILATERAL ARMS WITH EDEMA AND WEEPING. WILL DO FREQUENT BEDSIDE CHECK TO ENSURE PT. SKIN WILL BE CLEAN AND DRY. ALFRED CATHETER TO GRAVITY WITH CLEAR YELLOW COLOR URINE. ON BILATERAL SOFT WRIST RESTRAINT AND SITE NO S/S OF POOR CIRCULATION. NO S/S OF INJURY. CALL LIGHT WITHIN REACH. REPOSITIONED AND PLACED COMFORTABLY IN BED. PROVIDED SAFE AND QUIET ENVIRONMENT. NO S/S OF PAIN AND WILL CONTINUE TO MONITOR.
[2022-12-31] MEDS: SENNA 8.6 MG TAB PO SCH (20:53)
[2022-12-31 21:09] LABS: BASOPHILS % (AUTO) 0.1 % (0.0-2.0); EOSINOPHILS # (AUTO) 0.6 K/uL (0-0.4); EOSINOPHILS % (AUTO) 2.1 % (0.0-4.0); HEMATOCRIT 28.7 % (36-52); HEMOGLOBIN 9.6 g/dL (12.0-18.0); LYMPHOCYTES # (AUTO) 0.8 K/uL (2.0-11.5); LYMPHOCYTES % (AUTO) 2.8 % (20.5-51.1); MEAN CORPUSCULAR HEMOGLOBIN 31 pg (27-31); MEAN CORPUSCULAR HGB CONC 33 g/dL (33-37); MEAN CORPUSCULAR VOLUME 91.7 fL (80-94); MONOCYTES # (AUTO) 1.4 K/uL (0.8-1.0); NEUTROPHILS # (AUTO) 25.8 K/uL (1.8-7.7); PLATELET COUNT (AUTO) 138 K/uL (140-450); RED BLOOD CELL COUNT(AUTO) 3.13 MIL/uL (4.20-6.10); RED CELL DISTRIBUTION WIDTH 19.1 % (11.6-13.7)
[2022-12-31 21:12] LABS: WHITE BLOOD COUNT (AUTO) 28.7 K/uL (4.8-10.8)
--- NOTE | 2022-12-31 21:12 | NUR ---
LAB CALLED FOR WBC 28.7. WILL REPORT TO
--- NOTE | 2022-12-31 21:25 | NUR ---
SENT MESSAGE TO DR. CHANEY THAT PT. WBC IS 28.7. WILL WAIT FOR RESPONSE.
--- NOTE | 2022-12-31 21:30 | NUR ---
DR. CHANEY RESPONDED THAT HE IS NO LONGER SEEING THE PT. IT'S DR. VALDEZ. WILL NOTIFY DR. VALDEZ.
[2023-01-01] VITALS (29 sets, daily range): BP systolic 76–166; BP diastolic 47–88
[2023-01-01] MEDS: DEXMEDETOMIDINE HCL 400 MCG in NACL 0.9% 96 ML IV PRN ×9 (00:07→23:53)
[2023-01-01] MEDS: ERYTHROMYCIN 100 MG in NACL 0.9% 100 ML IV SCH ×5 (00:12→23:35)
[2023-01-01] MEDS: HYDRAGUARD CREAM TP SCH ×2 (01:00→12:59)
[2023-01-01] MEDS: SODIUM BICARBONATE 8.4% 150 MEQ in DEXTROSE 5% 1,000 ML IV SCH (01:15)
[2023-01-01] MEDS: ALBUTEROL 0.083% 2.5 MG/3 ML NEBU INH SCH ×3 (01:18→19:00)
[2023-01-01] MEDS: IPRATROPIUM 0.02% 0.5 MG/2.5 ML NEBU INH SCH ×3 (01:18→19:00)
[2023-01-01] MEDS: PIPERACILLIN/TAZOBACTAM 2.25 GM in DEXTROSE 5% 50 ML IV SCH ×3 (05:00→20:28)
[2023-01-01 06:24] LABS: ANION GAP 20.2 (8-16); CARBON DIOXIDE 18.3 mmol/L (21-32); CHLORIDE 102 mmol/L (98-107); GLUCOSE 129 mg/dL (74-106); POTASSIUM 3.5 mmol/L (3.5-5.1); SODIUM SERUM 137 mmol/L (136-145)
[2023-01-01 06:28] LABS: CREATININE 4.3 mg/dL (0.6-1.3); UREA NITROGEN, BLOOD 75 mg/dL (7-18)
[2023-01-01] MEDS: MIDODRINE 5 MG TAB PO SCH ×3 (06:53→18:53)
[2023-01-01 07:15] LABS: BASOPHILS # (AUTO) 0.1 K/uL (0.00-0.22); BASOPHILS % (AUTO) 0.2 % (0.0-2.0); EOSINOPHILS # (AUTO) 0.6 K/uL (0-0.4); EOSINOPHILS % (AUTO) 1.8 % (0.0-4.0); HEMATOCRIT 27.8 % (36-52); HEMOGLOBIN 9.1 g/dL (12.0-18.0); LYMPHOCYTES # (AUTO) 0.6 K/uL (2.0-11.5); LYMPHOCYTES % (AUTO) 1.9 % (20.5-51.1); MEAN CORPUSCULAR HEMOGLOBIN 31 pg (27-31); MEAN CORPUSCULAR HGB CONC 33 g/dL (33-37); MEAN CORPUSCULAR VOLUME 92.9 fL (80-94); MONOCYTES # (AUTO) 1.4 K/uL (0.8-1.0); MONOCYTES % (AUTO) 4.4 % (1.7-9.3); NEUTROPHILS # (AUTO) 28.8 K/uL (1.8-7.7); NEUTROPHILS % (AUTO) 91.7 % (42.2-75.2); PLATELET COUNT (AUTO) 144 K/uL (140-450); RED BLOOD CELL COUNT(AUTO) 2.99 MIL/uL (4.20-6.10); RED CELL DISTRIBUTION WIDTH 20.1 % (11.6-13.7)
[2023-01-01 07:23] LABS: WHITE BLOOD COUNT (AUTO) 31.3 K/uL (4.8-10.8)
--- NOTE | 2023-01-01 07:47 | NUR ---
GOT REPORT FROM THE NIGHT NURSE. PT IS SLEEPING THE IV AND VENT ARE IN PLACE.[id number]
--- NOTE | 2023-01-01 07:50 | NUR ---
REPORT GIVEN TO DAY SHIFT BROOKS STILL FOR CONTINUITY OF CARE.
[2023-01-01] MEDS ORDERED: ALBUMIN HUMAN 25% 100 ML IV ONE (08:30)
[2023-01-01] MEDS: PANTOPRAZOLE 40 MG INJ VIAL IVP SCH ×2 (08:53→20:29)
[2023-01-01] MEDS ORDERED: ALBUMIN HUMAN 25% 100 ML IV SCH (09:00)
--- NOTE | 2023-01-01 09:06 | NUR ---
C/O LOW BP GIVING ALBUMIN ORDERED.[id number]
--- NOTE | 2023-01-01 09:37 | NUR ---
PER WBC 32.3 DR TORRES SAID TO CONTINUE THE ANTIBIOTIC. TEMP 98.7 AXILLARY . PT IS IN DIALYSIS.[id number]
[2023-01-01] MEDS ORDERED: VANCOMYCIN PER PHARMACY MC PRN (09:55)
[2023-01-01] MEDS: SODIUM FERRIC GLUCONATE 125 MG in NACL 0.9% 100 ML IV SCH (12:46)
[2023-01-01] MEDS ORDERED: VANCOMYCIN 750 MG in DEXTROSE 5% 250 ML IV SCH (16:00)
[2023-01-01] MEDS: BUDESONIDE 0.5 MG/2 ML NEBU INH SCH ×2 (16:46→20:13)
--- NOTE | 2023-01-01 17:17 | NUR ---
VANESA TUBE REMOVED AND INSERTED NG TUBE ON THE RIGHT NALTREL, ORDERED KUB TO CHECK THE PLACEMENT.[id number]
--- NOTE | 2023-01-01 20:17 | NUR ---
2422 ABG WAS DRAWN AND RESULTS TEXT TO DR EVANS. WAITING FOR RESPONSE..PATIENT ON CPAP MODE. WAITING TO SEE IF WANTS PT EXTUBATED
[2023-01-01] MEDS: SENNA 8.6 MG TAB PO SCH (20:28)
--- NOTE | 2023-01-01 21:00 | NUR ---
DR STANLEY CALLED AND NOTED PT TO BE EXTUBATED IN AM PER MD CONTINUE ON PERCEDEX DRIP AND IF PAIN IS PRESENT START FENTANYL GTT AND DC FENTANYL GTT BY 0700 IF STARTED WILL CONTINUE TO MONITOR AND ASSESS
--- NOTE | 2023-01-01 21:27 | NUR ---
2054 DR SALGADO CALLED BACK AND SAID TO WAIT AND EXTUBATE PATIENT IN THE MORNING. DO WEANING TRIALS IN AM
--- NOTE | 2023-01-01 22:30 | NUR ---
CENTRAL LINE DRESSING TO RIGHT JUGULAR CHANGED TOLERATED WELL
[2023-01-02] VITALS (30 sets, daily range): BP systolic 84–167; BP diastolic 56–103
[2023-01-02] MEDS: IPRATROPIUM 0.02% 0.5 MG/2.5 ML NEBU INH SCH ×4 (00:36→19:50)
[2023-01-02] MEDS: ALBUTEROL 0.083% 2.5 MG/3 ML NEBU INH SCH ×4 (00:37→19:51)
[2023-01-02] MEDS: HYDRAGUARD CREAM TP SCH ×2 (01:07→12:02)
[2023-01-02] MEDS: DEXMEDETOMIDINE HCL 400 MCG in NACL 0.9% 96 ML IV PRN ×3 (02:32→12:04)
--- NOTE | 2023-01-02 03:46 | NUR ---
0315 SXNING BRIGHT RED BLOOD FROM PATIENT. RN AWARE
[2023-01-02] MEDS: PIPERACILLIN/TAZOBACTAM 2.25 GM in DEXTROSE 5% 50 ML IV SCH ×3 (05:08→21:21)
[2023-01-02] MEDS: ERYTHROMYCIN 100 MG in NACL 0.9% 100 ML IV SCH ×3 (05:21→17:22)
[2023-01-02 05:22] LABS: BASOPHILS # (AUTO) 0.1 K/uL (0.00-0.22); BASOPHILS % (AUTO) 0.2 % (0.0-2.0); EOSINOPHILS # (AUTO) 0.5 K/uL (0-0.4); EOSINOPHILS % (AUTO) 1.4 % (0.0-4.0); HEMATOCRIT 25.4 % (36-52); HEMOGLOBIN 8.4 g/dL (12.0-18.0); LYMPHOCYTES # (AUTO) 0.7 K/uL (2.0-11.5); LYMPHOCYTES % (AUTO) 2.1 % (20.5-51.1); MEAN CORPUSCULAR HEMOGLOBIN 31 pg (27-31); MEAN CORPUSCULAR HGB CONC 33 g/dL (33-37); MEAN CORPUSCULAR VOLUME 93.1 fL (80-94); MONOCYTES # (AUTO) 1.7 K/uL (0.8-1.0); NEUTROPHILS # (AUTO) 30.4 K/uL (1.8-7.7); NEUTROPHILS % (AUTO) 91.3 % (42.2-75.2); PLATELET COUNT (AUTO) 154 K/uL (140-450); RED BLOOD CELL COUNT(AUTO) 2.73 MIL/uL (4.20-6.10); RED CELL DISTRIBUTION WIDTH 20.8 % (11.6-13.7)
[2023-01-02 05:39] LABS: WHITE BLOOD COUNT (AUTO) 33.3 K/uL (4.8-10.8)
--- NOTE | 2023-01-02 05:44 | NUR ---
WBC 33.3 MD ESPOSITO PAGED
[2023-01-02 06:30] LABS: ANION GAP 14.2 (8-16); CARBON DIOXIDE 25.9 mmol/L (21-32); CHLORIDE 101 mmol/L (98-107); CREATININE 3.1 mg/dL (0.6-1.3); GLUCOSE 83 mg/dL (74-106); POTASSIUM 3.1 mmol/L (3.5-5.1); SODIUM SERUM 138 mmol/L (136-145); UREA NITROGEN, BLOOD 44 mg/dL (7-18)
--- NOTE | 2023-01-02 07:30 | NUR ---
Received report on pt. Pt intubated and sedated with precedex drip, awake and calm, indicated no pain. NGT clamped. Beckman draining urine to gravity. Bilateral soft wrist restraints in place for safety.
--- NOTE | 2023-01-02 08:10 | NUR ---
Updates given to pt's Scar Humphrey
[2023-01-02] MEDS: MIDODRINE 5 MG TAB PO SCH ×3 (08:14→19:00)
[2023-01-02] MEDS: PANTOPRAZOLE 40 MG INJ VIAL IVP SCH ×2 (08:15→21:22)
[2023-01-02] MEDS: BUDESONIDE 0.5 MG/2 ML NEBU INH SCH ×2 (11:54→19:50)
--- NOTE | 2023-01-02 13:00 | NUR ---
Dr. Aburto. rounding on pt, informed regarding pt's melena and blood-tinged sputum from ETT. New orders made. Per RN, Dr. Aburto stated to hold off on extubation for today.
[2023-01-02] MEDS: SODIUM FERRIC GLUCONATE 125 MG in NACL 0.9% 100 ML IV SCH (13:39)
[2023-01-02 14:06] LABS: BASOPHILS % (AUTO) 0.2 % (0.0-2.0); EOSINOPHILS # (AUTO) 0.5 K/uL (0-0.4); EOSINOPHILS % (AUTO) 1.8 % (0.0-4.0); HEMOGLOBIN 8.3 g/dL (12.0-18.0); LYMPHOCYTES # (AUTO) 0.8 K/uL (2.0-11.5); LYMPHOCYTES % (AUTO) 2.5 % (20.5-51.1); MEAN CORPUSCULAR HEMOGLOBIN 31 pg (27-31); MEAN CORPUSCULAR HGB CONC 33 g/dL (33-37); MEAN CORPUSCULAR VOLUME 93.5 fL (80-94); MONOCYTES # (AUTO) 1.5 K/uL (0.8-1.0); MONOCYTES % (AUTO) 4.9 % (1.7-9.3); NEUTROPHILS # (AUTO) 27.8 K/uL (1.8-7.7); NEUTROPHILS % (AUTO) 90.6 % (42.2-75.2); PLATELET COUNT (AUTO) 167 K/uL (140-450); RED BLOOD CELL COUNT(AUTO) 2.68 MIL/uL (4.20-6.10); RED CELL DISTRIBUTION WIDTH 20.7 % (11.6-13.7)
[2023-01-02 14:09] LABS: WHITE BLOOD COUNT (AUTO) 30.7 K/uL (4.8-10.8)
--- NOTE | 2023-01-02 14:20 | NUR ---
Dr. Aburto. informed regarding pt's CBC results, no new orders made.
--- NOTE | 2023-01-02 15:15 | NUR ---
Dr. Mcconnell rounding on pt. Informed and aware regarding pt's BM with melena and blood-tinged sputum. Dr. Mcconnell also states to hold feeding for now until pt is seen by Dr. Donato.
--- NOTE | 2023-01-02 15:21 | NUR ---
01/02/23 RD FOLLOW UP COMPLETED PLEASE REFER TO NUTRITION ASSESSMENT UNDER CARE ACTIVITY FOR ESTIMATED NUTRITIONAL NEEDS. 1. WHEN/IF MEDICALLY APPROPRIATE TO RESUME TF, RECOMMEND SWITCHING TO NEPRO 1.8 AT GOAL RATE 40 ML/HR, FWF 50 ML Q6H -PROVIDES 960 ML VOLUME, 1728 KCAL, 78 GM PROTEIN AND 897 ML FREE WATER DAILY MEETING 86% ESTIMATED KCAL AND 97% ESTIMATED PROTEIN NEEDS; ADEQUATE -START TF AT 1O ML/HR INCREASE BY 1O ML Q4H UNTIL GOAL IS REACHED TOLERATED 2. IF PT EXTUBATED, RECOMMEND SWALLOW EVAL BEFORE ADVANCING DIET - WHEN/IF MEDICALLY APPROPRIATE TO START PO DIET, RECOMMEND RENAL, [id number] DIET WITH TEXTURE MODIFICATIONS PER ST SWALLOW EVAL RECOMMENDATIONS 3. MONITOR GI SYMPTOMS, GASTRIC RESIDUALS AND NUTRITION RELATED LAB VALUES 4. CONSULT RD PRN 5. RD TO FOLLOW-UP 2-3 DAYS, HIGH RISK REVIEWED BY MARK OLMSTEAD RD
[2023-01-02] MEDS ORDERED: KCL 20 MEQ IN 100 mL PREMIX 100 ML IV SCH (17:00)
--- NOTE | 2023-01-02 17:25 | NUR ---
Updates given to pt's daughter Bhumi Naeem.
--- NOTE | 2023-01-02 18:40 | NUR ---
Closing Pt drowsy, arousable, remains intubated and sedated with precedex. No acute changes noted throughout shift. Still receiving K rider 40 mEq. Dialysis scheduled for tomorrow. Will endorse plan of care to RN.
[2023-01-02] MEDS: KCL 20 MEQ IN 100 mL PREMIX 200 ML IV PRN (18:58)
--- NOTE | 2023-01-02 19:25 | NUR ---
TRANSFER OF CARE FROM DAY SHIFT, REPORT RECEIVED FROM KAZ. PATIENT RECEIVED SEMI-AROUSABLE TO NAME AND TOUCH. PATIENT IS INTUBATED, (ETT TO VENT) WITH THE FOLLOWING SETTINGS: AC/PRVC, FIO2 = 21%, VT = 500, R = 18, PEEP = 5. PATIENT HAS NG TUBE TO RIGHT NARE PATIENT HAS LEFT IJ XIOMARA CATHETHER FOR DIALYSIS ACCESS AND RIGHT IJ, TLC WITH THE FOLLOWING MEDICATIONS INFUSING: KCL 20MEQ @ 50ML/HR, PRECEDEX 400MCG @ 0.4MCG/KG/HR, NS @ 5ML/HR. PATIENT HAS ALFRED IN PLACE, CURRENT VITALS AT START OF SHIFT: TEMP = 97.6F, HR = 120, O2 SAT = 100%, R = 18, BP = 105/75. WILL CONTINUE TO MONITOR PATIEN T FOR ANY CHANGE IN CONDITION
--- NOTE | 2023-01-02 19:50 | NUR ---
RT AT BEDSIDE, PATIENT PROVIDED TO CONSENT TO ATTEMPT SBT.
[2023-01-02] MEDS: SENNA 8.6 MG TAB PO SCH (21:22)
[2023-01-03] VITALS (30 sets, daily range): BP systolic 86–158; BP diastolic 47–105
[2023-01-03] MEDS: ERYTHROMYCIN 100 MG in NACL 0.9% 100 ML IV SCH ×4 (00:29→17:21)
[2023-01-03] MEDS: IPRATROPIUM 0.02% 0.5 MG/2.5 ML NEBU INH SCH ×5 (00:49→19:32)
[2023-01-03] MEDS: ALBUTEROL 0.083% 2.5 MG/3 ML NEBU INH SCH ×4 (00:49→19:32)
[2023-01-03] MEDS: HYDRAGUARD CREAM TP SCH ×2 (01:00→13:00)
[2023-01-03] MEDS: DEXMEDETOMIDINE HCL 400 MCG in NACL 0.9% 96 ML IV PRN ×2 (02:22→12:24)
[2023-01-03] MEDS: PIPERACILLIN/TAZOBACTAM 2.25 GM in DEXTROSE 5% 50 ML IV SCH ×3 (05:48→21:53)
[2023-01-03 06:05] LABS: MAGNESIUM 1.8 mg/dL (1.8-2.4); PHOSPHORUS 6.2 mg/dL (2.5-4.9)
[2023-01-03 06:18] LABS: ANION GAP 20.5 (8-16); CARBON DIOXIDE 20.7 mmol/L (21-32); CHLORIDE 101 mmol/L (98-107); CREATININE 3.6 mg/dL (0.6-1.3); POTASSIUM 4.2 mmol/L (3.5-5.1); SODIUM SERUM 138 mmol/L (136-145); UREA NITROGEN, BLOOD 50 mg/dL (7-18)
[2023-01-03 06:25] LABS: GLUCOSE 70 mg/dL (74-106)
--- NOTE | 2023-01-03 07:20 | NUR ---
Received report on pt. Pt intubated and lightly sedated with precedex drip, able to follow commands. OGT in place. Bilateral soft wrist restraints in place for safety. Beckman draining urine to gravity. Pt is scheduled for hemodialysis today. Addendum: 01/03/23 at 0758 by Agency Nurse 23, TESSY RN Correction: NGT
--- NOTE | 2023-01-03 07:25 | NUR ---
TRANSFER OF CARE TO DAY SHIFT, REPORT ENDORSED TO KAZ
[2023-01-03 07:51] LABS: BASOPHILS # (AUTO) 0.1 K/uL (0.00-0.22); BASOPHILS % (AUTO) 0.3 % (0.0-2.0); EOSINOPHILS # (AUTO) 0.5 K/uL (0-0.4); EOSINOPHILS % (AUTO) 1.7 % (0.0-4.0); HEMATOCRIT 25.6 % (36-52); HEMOGLOBIN 8.2 g/dL (12.0-18.0); LYMPHOCYTES % (AUTO) 3.7 % (20.5-51.1); MEAN CORPUSCULAR HEMOGLOBIN 30 pg (27-31); MEAN CORPUSCULAR HGB CONC 32 g/dL (33-37); MEAN CORPUSCULAR VOLUME 94.7 fL (80-94); MONOCYTES # (AUTO) 1.9 K/uL (0.8-1.0); NEUTROPHILS # (AUTO) 23.3 K/uL (1.8-7.7); NEUTROPHILS % (AUTO) 87.3 % (42.2-75.2); PLATELET COUNT (AUTO) 185 K/uL (140-450); RED CELL DISTRIBUTION WIDTH 21.7 % (11.6-13.7)
[2023-01-03 07:53] LABS: WHITE BLOOD COUNT (AUTO) 26.7 K/uL (4.8-10.8)
--- NOTE | 2023-01-03 08:00 | NUR ---
Pt started on tube feeding, no output noted from NGT. No BM noted. Repositioned.
[2023-01-03] MEDS: PANTOPRAZOLE 40 MG INJ VIAL IVP SCH ×2 (08:06→21:50)
[2023-01-03] MEDS: MIDODRINE 5 MG TAB PO SCH ×3 (08:06→20:00)
[2023-01-03] MEDS: ACETAMINOPHEN 325 MG TAB PO PRN (11:21)
--- NOTE | 2023-01-03 11:30 | NUR ---
Pt's Scar Humphrey and daughter Bhumi Hartley at bedside with pt. Updated regarding plan of care. Assisted with repositioning pt for comfort and provided prn tylenol. Glasses and glasses case brought from home for pt watching TV.
[2023-01-03] MEDS: SODIUM FERRIC GLUCONATE 125 MG in NACL 0.9% 100 ML IV SCH (12:27)
--- NOTE | 2023-01-03 14:00 | NUR ---
Dr. Mcconnell rounding on pt. Informed about pt requesting prn pain medication, new orders made for morphine IV push PRN.
[2023-01-03 14:06] LABS: BASOPHILS # (AUTO) 0.1 K/uL (0.00-0.22); BASOPHILS % (AUTO) 0.6 % (0.0-2.0); EOSINOPHILS # (AUTO) 0.6 K/uL (0-0.4); EOSINOPHILS % (AUTO) 2.4 % (0.0-4.0); HEMATOCRIT 25.3 % (36-52); HEMOGLOBIN 8.2 g/dL (12.0-18.0); MEAN CORPUSCULAR HEMOGLOBIN 31 pg (27-31); MEAN CORPUSCULAR HGB CONC 32 g/dL (33-37); MEAN CORPUSCULAR VOLUME 94.4 fL (80-94); MONOCYTES # (AUTO) 1.8 K/uL (0.8-1.0); MONOCYTES % (AUTO) 7.6 % (1.7-9.3); NEUTROPHILS # (AUTO) 20.4 K/uL (1.8-7.7); NEUTROPHILS % (AUTO) 85.4 % (42.2-75.2); PLATELET COUNT (AUTO) 184 K/uL (140-450); RED BLOOD CELL COUNT(AUTO) 2.68 MIL/uL (4.20-6.10); RED CELL DISTRIBUTION WIDTH 20.6 % (11.6-13.7); WHITE BLOOD COUNT (AUTO) 23.9 K/uL (4.8-10.8)
--- NOTE | 2023-01-03 14:30 | NUR ---
Dialysis being done at bedside. Pt indicated no pain or distress at this time.
--- NOTE | 2023-01-03 15:43 | NUR ---
Dr. Aburto. rounding on pt, states if hemoglobin is stable 8 g/dL tomorrow, then plan for extubation tomorrow.
[2023-01-03] MEDS ORDERED: MAG SULF 2000 MG/WATER PREMIX 50 ML IV ONE (15:45)
[2023-01-03] MEDS: BUDESONIDE 0.5 MG/2 ML NEBU INH SCH ×2 (16:44→19:32)
--- NOTE | 2023-01-03 19:07 | NUR ---
Pt remains intubated and lightly sedated with precedex drip, awake and alert, follows commands, indicated no pain at this time. Pt receiving tube feeding, no BM noted for collection and Dr. Aburto. aware. Pt received dialysis, 2.4L out. Noted urine output. Bilateral soft wrist restraints in place for safety. Will endorse plan of care to RN.
--- NOTE | 2023-01-03 19:33 | NUR ---
RECEIVED REPORT FROM AM SHIFT. PATIENT WAS SEEN AND ASSESSED. PATIENT IS INTUBATED BUT AWAKE AND ALERT WITH ETT SIZE 7.5 AND SECURED WITH A BITING BLOCK ANCHOR-FAST 24cm @ GUM. PATIENT IS ON VENTILATOR SUPPORT. VENT SETTINGS: AC/PRVC RR 18, TARGETED VT 500, PEEP 5, FiO2 21% WITH SPO2 OF 96%. VENTILATOR PLUGGED IN RED OUTLET. VENTILATOR ALARMS SET APPROPRIATELY AND AUDIBLE TO ENVIRONMENT. AMBU BAG AT BEDSIDE. HEAD OF BED GREATER THAN 30 DEGREES. NOTICED ADEQUATE BILATERAL CHEST RISE AND FALL. PATIENT IS IN NO RESPIRATORY DISTRESS AT THIS TIME. SUCTIONED SMALL KEN THICK SECRETIONS FROM ETT AND SMALL WHITE THIN ORALLY. ORAL CARE WAS DONE AND PT TOLERATED WELL. HHN TX GIVEN ORDERED AND PT TOLERATED TX WELL WITH NO ADVERSE REACTION. BILATERAL BREATH SOUNDS ON AUSCULTATION; UPPER LOBES: COARSE CRACKLES LOWER LOBES: COARSE CRACKLES PEAK PRESSURE: 23 cmH20 PLATEAU PRESSURE: 22 cmH20 DRIVING PRESSURE: 17 cmH20 WILL CONTINUE TO MONITOR PATIENT.
--- NOTE | 2023-01-03 19:35 | NUR ---
RECEIVED REPORT FROM TESSY GARCIA. PT. AWAKE,ALERT, FOLLOWS SIMPLE COMMAND. ON ETT TO VENT A/C PRVC RATE 18, FIO2 20%, TV 500, PEEP 5 AND O2 SAT 100%. ASSESSMENT DONE. BILATERAL LUNG SOUNDS RONCHI. EYES REACTED TO LIGHT. IV TO RIGHT JUGULAR CENTRAL LINE TRIPLLE LUMEN PATENT AND INTACT. NO S/S OF INFECTION AND INFUSING PRECEDEX DRIP 0.4 MCG/KG/HR. PT. HAD DIALYSIS TODAY FROM DAY SHIFT AND 2.4L OUTPUT. DIALYSIS ACCESS TO LEFT JUGULAR XIOMARA CATHETER INTACT. NGT FEEDING TO THE RIGHT NARE, CHECKED AND IN PLACED. RUNNING VITAL AF 1.2 AT 30 ML/HR. TOLERATING WELL WITH MINIMAL GASTRIC RESIDUAL 5ML. ALFRED CATHETER TO GRAVITY,WITH CLEAR YELLOW COLOR URINE. BILATERAL UPPER EXTREMITIES WITH WEEPING EDEMA. KEEPING SITE CLEAN AND DRY. PLACED CALL LIGHT WITHIN REACH. MAKE ALL NEEDS KNOWN. PLACED IN COMFORTABLE POSITION. PROVIDED SAFE AND QUIET ENVIRONMENT. NO S/S OF DISTRESS, NO S/S OF PAIN AT THIS TIME. WILL CONT. TO MONITOR.
[2023-01-03 20:19] LABS: BASOPHILS # (AUTO) 0.1 K/uL (0.00-0.22); BASOPHILS % (AUTO) 0.3 % (0.0-2.0); EOSINOPHILS # (AUTO) 0.4 K/uL (0-0.4); EOSINOPHILS % (AUTO) 1.8 % (0.0-4.0); HEMATOCRIT 29.7 % (36-52); HEMOGLOBIN 9.7 g/dL (12.0-18.0); LYMPHOCYTES % (AUTO) 4.7 % (20.5-51.1); MEAN CORPUSCULAR HEMOGLOBIN 31 pg (27-31); MEAN CORPUSCULAR HGB CONC 33 g/dL (33-37); MEAN CORPUSCULAR VOLUME 94.8 fL (80-94); MONOCYTES # (AUTO) 1.9 K/uL (0.8-1.0); MONOCYTES % (AUTO) 8.3 % (1.7-9.3); NEUTROPHILS # (AUTO) 18.9 K/uL (1.8-7.7); NEUTROPHILS % (AUTO) 84.9 % (42.2-75.2); PLATELET COUNT (AUTO) 185 K/uL (140-450); RED BLOOD CELL COUNT(AUTO) 3.13 MIL/uL (4.20-6.10); RED CELL DISTRIBUTION WIDTH 20.7 % (11.6-13.7); WHITE BLOOD COUNT (AUTO) 22.3 K/uL (4.8-10.8)
[2023-01-03] MEDS ORDERED: VANCOMYCIN 750 MG in DEXTROSE 5% 250 ML IV SCH (21:00)
[2023-01-03] MEDS: SENNA 8.6 MG TAB PO SCH (21:50)
[2023-01-04] VITALS (25 sets, daily range): BP systolic 107–180; BP diastolic 62–125
[2023-01-04] MEDS: DEXMEDETOMIDINE HCL 400 MCG in NACL 0.9% 96 ML IV PRN ×3 (01:00→20:57)
[2023-01-04] MEDS: HYDRAGUARD CREAM TP SCH ×2 (01:00→13:11)
[2023-01-04] MEDS: ALBUTEROL 0.083% 2.5 MG/3 ML NEBU INH SCH ×4 (01:24→19:55)
[2023-01-04] MEDS: IPRATROPIUM 0.02% 0.5 MG/2.5 ML NEBU INH SCH ×4 (01:24→19:55)
--- NOTE | 2023-01-04 04:12 | NUR ---
LAB DRAWN BLOOD FOR CBC AND BMP.
[2023-01-04] MEDS: PIPERACILLIN/TAZOBACTAM 2.25 GM in DEXTROSE 5% 50 ML IV SCH ×3 (05:52→20:53)
[2023-01-04] MEDS: ERYTHROMYCIN 100 MG in NACL 0.9% 100 ML IV SCH ×3 (05:54)
[2023-01-04 06:06] LABS: BASOPHILS # (AUTO) 0.1 K/uL (0.00-0.22); BASOPHILS % (AUTO) 0.3 % (0.0-2.0); EOSINOPHILS # (AUTO) 0.2 K/uL (0-0.4); EOSINOPHILS % (AUTO) 1.2 % (0.0-4.0); HEMOGLOBIN 8.5 g/dL (12.0-18.0); LYMPHOCYTES % (AUTO) 4.9 % (20.5-51.1); MEAN CORPUSCULAR HEMOGLOBIN 30 pg (27-31); MEAN CORPUSCULAR HGB CONC 32 g/dL (33-37); MEAN CORPUSCULAR VOLUME 94.6 fL (80-94); MONOCYTES # (AUTO) 1.7 K/uL (0.8-1.0); MONOCYTES % (AUTO) 8.3 % (1.7-9.3); NEUTROPHILS # (AUTO) 17.3 K/uL (1.8-7.7); NEUTROPHILS % (AUTO) 85.3 % (42.2-75.2); PLATELET COUNT (AUTO) 185 K/uL (140-450); RED BLOOD CELL COUNT(AUTO) 2.85 MIL/uL (4.20-6.10); RED CELL DISTRIBUTION WIDTH 20.1 % (11.6-13.7); WHITE BLOOD COUNT (AUTO) 20.3 K/uL (4.8-10.8)
[2023-01-04 06:08] LABS: ANION GAP 15.3 (8-16); CARBON DIOXIDE 24.9 mmol/L (21-32); CHLORIDE 102 mmol/L (98-107); CREATININE 2.6 mg/dL (0.6-1.3); GLUCOSE 101 mg/dL (74-106); POTASSIUM 3.2 mmol/L (3.5-5.1); SODIUM SERUM 139 mmol/L (136-145); UREA NITROGEN, BLOOD 30 mg/dL (7-18)
[2023-01-04] MEDS: MIDODRINE 5 MG TAB PO SCH ×3 (07:00→19:59)
--- NOTE | 2023-01-04 07:00 | NUR ---
Received report from TESSY Brooks Noc shift nurse. Pt resting in bed appears awake and alert. PERRLA 3mm. Bilateral wrist restraints in place, able to move BUE freely, moves BLE with assist, no s/s of injury to BUE; neurovascular intact. S1 and S2 auscultated, ST on monitor. Pulses +2 BUE, +2 RLE and +1LLE. Pitting Edema +4 BUE with weeping, chux placed under arms, arms elevated. +3 pitting edema noted to BLE. Central line to right IJ appears WNL, running Precedex 0.4 mcg/kg/hr and NS at TKO. Cap refill < 3. Lung sounds clear all beltran, saturating 100% on vent. Vent settings as follows, AC PRVC 21%, 500, 18, 5. Bowel sounds present x4 quadrants NGT to right nare running vital AF at 40ml/hr.Ferdinand cath to left neck, with no s/s of infection; appears WNL. F/c in place draining clear yellow urine to gravity. Will continue to monitor.
--- NOTE | 2023-01-04 07:22 | NUR ---
REPORT GIVEN TO ALBERTINA AGUILA RN FOR CONTINUITY OF CARE.
[2023-01-04] MEDS: BUDESONIDE 0.5 MG/2 ML NEBU INH SCH ×2 (07:24→19:55)
[2023-01-04 08:08] LABS: HEPATITIS A ANTIBODY IGM Negative (Negative); HEPATITIS B CORE AB TOTAL Negative (Negative); HEPATITIS B SURFACE ANTIBODY Non Reactive (.); HEPATITIS B SURFACE ANTIGEN Negative (Negative)
[2023-01-04] MEDS: PANTOPRAZOLE 40 MG INJ VIAL IVP SCH ×2 (08:41→21:00)
--- NOTE | 2023-01-04 09:00 | NUR ---
PATIENT PLACED ON SBT. PATIENT AWAKE AND ALERT. ABLE TO FOLLOW COMMANDS AND RAISE HEAD OFF BED. PATIENT SHOWS NO SIGNS OF DISTRESS AT THIS TIME. WILL CONTINUE TO MONITOR.
--- NOTE | 2023-01-04 10:05 | NUR ---
PT ON SBT MODE ON VENTILATOR STARTING AT 0900 THIS MORNING. ABG DRAWN, RT GARRY REPORTED RESULTS TO DR SALGADO. DR SALGADO CALLED TO GIVE ORDERS TO HOLD TUBE FEEDING, PLACE PT ON SUCTION AND EXTUBATE PT; TUBE FEEDING CAN RESUME 1-2 HOURS AFTER EXTUBATION; SLOWLY WEAN PRECEDEX TOLERATED POST EXTUBATION.
--- NOTE | 2023-01-04 11:10 | NUR ---
PATIENT EXTUBATED. AUSCULTATED NECK WITH NO STRIDOR PRESENT. PATIENT AWAKE AND ALERT. PATIENT PLACED ON COOL MIST VIA AEROSOL MASK. PATIENT TOLERATING WELL. WILL CONTINUE TO MONITOR.
--- NOTE | 2023-01-04 11:10 | NUR ---
PT EXTUBATED WITH RT AT BEDSIDE. PLACED COOL AEROSOL MASK. SATURATING AT 99%. WILL CONTINUE TO MONITOR.
[2023-01-04] MEDS ORDERED: MAG SULF 2000 MG/WATER PREMIX 50 ML IV SCH (12:00)
[2023-01-04] MEDS: KCL 20 MEQ IN 100 mL PREMIX 200 ML IV PRN (12:12)
[2023-01-04] MEDS: MAG SULF 2000 MG/WATER PREMIX 50 ML IV PRN (12:14)
--- NOTE | 2023-01-04 12:45 | NUR ---
HERE TO SEE PT. NEW ORDERS GIVEN. ORDERS NOTED AND CARRIED OUT. SEE ORDERS FOR DETAIL.
[2023-01-04] MEDS ORDERED: LABETALOL 20 MG/4 ML VIAL IVP PRN (13:05)
[2023-01-04] MEDS: LABETALOL 20 MG/4 ML VIAL IVP PRN (14:02)
[2023-01-04] MEDS ORDERED: KCL 20 MEQ IN 100 mL PREMIX 200 ML IV SCH (15:00)
--- NOTE | 2023-01-04 15:06 | NUR ---
DR. LORA HERE TO SEE PT. NEW ORDER GIVEN. ORDER NOTED AND CARRIED OUT. HYDRALAZINE 5MG IVP X1 NOW, PER MD GARDUNO TO ORDER HYDRALAZINE 5MG IVP Q 6HRS FOR SBP > 160 AND DBP >110.
[2023-01-04] MEDS ORDERED: hydrALAZINE 20 MG/ML VIAL IVP SCH (15:11)
--- NOTE | 2023-01-04 16:21 | NUR ---
PT. NOT APPROPRIATE FOR ST EVALUATION AT THIS TIME. PLAN TO REEVALUATE PT. AT A MORE APPROPRIATE TIME. ARMHOLE RAISER LOCKSTITCH MADE AWARE.
[2023-01-04] MEDS: MORPHINE SULFATE 2 MG/ML SYR IVP PRN (17:23)
--- NOTE | 2023-01-04 17:50 | NUR ---
PATIENT HAD X1 MEDIUM LIQUID DARK STOOL. SPECIMEN COLLECTED FOR C.DIFF AND OCCULT STOOL STUDY. RED RASH WITH SMALL WHITE PAPULES NOTED TO BILATERAL INGUINAL FOLDS. WILL NOTIFY OF FINDING.STOOL SENT TO LAB FOR PROCESSING
[2023-01-04] MEDS: ACETAMINOPHEN 325 MG TAB PO PRN (18:03)
--- NOTE | 2023-01-04 18:54 | NUR ---
MESSAGED WITH FINDINGS CONCERNING BILATERAL INGUINAL RASH. AWAITING RESPONSE.
--- NOTE | 2023-01-04 19:26 | NUR ---
SBAR REPORT GIVEN TO BARBARA STILL, ALL CARES ENDORSED.
--- NOTE | 2023-01-04 19:55 | NUR ---
RECEIVED REPORT FROM AM SHIFT. PATIENT WAS SEEN AND ASSESSED. POST EXTUBATED PATIENT WITH NO STRIDOR. PATIENT IS AWAKE AND ALERT. PT ON 10L BUBBLE HIGH FLOW NASAL CANNULA WITH SPO2 OF 100%. AMBU BAG AT BEDSIDE. HEAD OF BED GREATER THAN 30 DEGREES. NOTICED ADEQUATE BILATERAL CHEST RISE AND FALL. PATIENT IS IN NO RESPIRATORY DISTRESS AT THIS TIME. HHN TX GIVEN ORDERED AND PATIENT TOLERATED TX WELL WITH NO ADVERSE REACTION. BILATERAL BREATH SOUNDS ON AUSCULTATION; UPPER LOBES: CLEAR LOWER LOBES: DIMINISHED WILL CONTINUE TO MONITOR PATIENT.
--- NOTE | 2023-01-04 20:10 | NUR ---
TITRATED O2 FROM 10L TO 7L BUBBLE HFNC. SPO2 100%. PT TOLERATING WELL. RN NOTIFIED. WILL CONITINUE TO MONITOR PT.
[2023-01-04] MEDS: NYSTATIN POW 100 MU/GM 15 GM BTL TP SCH (21:00)
[2023-01-04] MEDS: SENNA 8.6 MG TAB PO SCH (21:01)
[2023-01-05] VITALS (33 sets, daily range): BP systolic 88–179; BP diastolic 44–135
[2023-01-05] MEDS: IPRATROPIUM 0.02% 0.5 MG/2.5 ML NEBU INH SCH ×4 (00:04→19:09)
[2023-01-05] MEDS: ALBUTEROL 0.083% 2.5 MG/3 ML NEBU INH SCH ×4 (00:04→19:09)
--- NOTE | 2023-01-05 00:04 | NUR ---
TITRATED O2 FROM 17L TO 4L BUBBLE HFNC. SPO2 100%. PT TOLERATING WELL. RN NOTIFIED. WILL CONTINUE TO MONITOR PT.
[2023-01-05] MEDS: HYDRAGUARD CREAM TP SCH ×2 (02:40→13:45)
[2023-01-05] MEDS: PIPERACILLIN/TAZOBACTAM 2.25 GM in DEXTROSE 5% 50 ML IV SCH ×3 (05:19→20:02)
[2023-01-05] MEDS: DEXMEDETOMIDINE HCL 400 MCG in NACL 0.9% 96 ML IV PRN (05:21)
[2023-01-05 06:04] LABS: BASOPHILS # (AUTO) 0.1 K/uL (0.00-0.22); BASOPHILS % (AUTO) 0.5 % (0.0-2.0); EOSINOPHILS # (AUTO) 0.4 K/uL (0-0.4); EOSINOPHILS % (AUTO) 2.6 % (0.0-4.0); HEMATOCRIT 24.8 % (36-52); HEMOGLOBIN 8.3 g/dL (12.0-18.0); LYMPHOCYTES # (AUTO) 1.1 K/uL (2.0-11.5); LYMPHOCYTES % (AUTO) 7.1 % (20.5-51.1); MEAN CORPUSCULAR HEMOGLOBIN 31 pg (27-31); MEAN CORPUSCULAR HGB CONC 33 g/dL (33-37); MEAN CORPUSCULAR VOLUME 92.7 fL (80-94); MONOCYTES # (AUTO) 1.3 K/uL (0.8-1.0); MONOCYTES % (AUTO) 8.4 % (1.7-9.3); NEUTROPHILS % (AUTO) 81.4 % (42.2-75.2); PLATELET COUNT (AUTO) 161 K/uL (140-450); RED BLOOD CELL COUNT(AUTO) 2.67 MIL/uL (4.20-6.10); RED CELL DISTRIBUTION WIDTH 19.3 % (11.6-13.7); WHITE BLOOD COUNT (AUTO) 15.9 K/uL (4.8-10.8)
[2023-01-05 06:45] LABS: ANION GAP 15.1 (8-16); CARBON DIOXIDE 24.7 mmol/L (21-32); CHLORIDE 103 mmol/L (98-107); GLUCOSE 94 mg/dL (74-106); POTASSIUM 3.8 mmol/L (3.5-5.1); SODIUM SERUM 139 mmol/L (136-145); UREA NITROGEN, BLOOD 34 mg/dL (7-18)
[2023-01-05] MEDS: MIDODRINE 5 MG TAB PO SCH ×3 (07:00→19:33)
[2023-01-05 07:09] LABS: MAGNESIUM 2.3 mg/dL (1.8-2.4); PHOSPHORUS 4.1 mg/dL (2.5-4.9)
--- NOTE | 2023-01-05 07:15 | NUR ---
RECEIVED BEDSIDE REPORT FROM IT RISK ANALYST RN FOR CONTINUITY OF CARE. PT AWAKE ALERT ABLE TO MAKE NEEDS KNOWN AND FOLLOW COMMANDS. 2L NC. TLC TO RIJ INFUSING PRECDEX AT 0.2 MCG/KG/HR AND NS TKO. AFIB ON MONITOR. NGT IN PLACE TO RIGHT NARE INFUSING VITAL TUBE FEEDING AT 60 ML/HR. F/C TO GRAVITY. HC CATH TO LIJ. MODERATE WEAKNESS THROUGHOUT. STANDARD PRECAUTION. HOB 30 DEGREES. BED LOCKED AND IN LOWEST POSITION.
[2023-01-05] MEDS: BUDESONIDE 0.5 MG/2 ML NEBU INH SCH ×2 (07:30→19:09)
[2023-01-05] MEDS: PANTOPRAZOLE 40 MG INJ VIAL IVP SCH ×2 (08:13→21:12)
--- NOTE | 2023-01-05 08:59 | NUR ---
HD NURSE AND FAMILY AT BEDSIDE.
--- NOTE | 2023-01-05 09:48 | NUR ---
PT COMPLAINING OF CHEST PRESSURE. HD NURSE AT BEDSIDE DISCONTINUING HD. PAGED TO DR. CARL CALDERON TO NOTIFY OF PT CONDITION. AWAITING RETURN PHONE CALL. PT PLACED BACK ON NC D/T DESATTING.
--- NOTE | 2023-01-05 10:10 | NUR ---
RETURN PHONE CALL FROM DR. CARL CALDERON WHO ORDERED TO STOP DIALYSIS FOR TODAY AND ADMINISTER PRN LABETALOL FOR HTN.
[2023-01-05] MEDS: LABETALOL 20 MG/4 ML VIAL IVP PRN (10:12)
--- NOTE | 2023-01-05 11:20 | NUR ---
SEEN AND EXAMINED BY DR. GIBSON AT BEDSIDE.
[2023-01-05] MEDS ORDERED: LORazepam 2 MG/ML VIAL ONE (12:33)
[2023-01-05] MEDS: LORazepam 2 MG/ML VIAL IVP PRN (12:39)
--- NOTE | 2023-01-05 12:46 | NUR ---
1246 PT REPORTED ANXIETY. LABORED BREATHING AND DIFFICULTY CLEARING AIRWAY. ORAL SUCTION NOT SUCCESSFUL. RT AT BEDSIDE TO NT SUCTION. 1250 PT BRADYCARDIC AND LOST PULSE. CODE BLUE CALLED AND CPR STARTED. 1258 ROSC ACHIEVED AND PT REINTUBATED BY ER DR. ORO.
[2023-01-05] MEDS ORDERED: NOREPINEPHRINE 4 MG/4 ML VIAL IV ONE (12:52)
[2023-01-05] MEDS: PROPOFOL 1000 MG/100 ML PREMIX 100 ML IV PRN ×2 (13:10→18:10)
[2023-01-05] MEDS ORDERED: NOREPINEPHRINE 4 MG in DEXTROSE 5% 250 ML IV SCH (13:45)
--- NOTE | 2023-01-05 13:58 | NUR ---
PT. NOT SAFE FOR ST EVALUATION AT THIS TIME D/T INTUBATION. ST MAY REEVALUATE PT. AT A MORE APPROPRIATE TIME. RN MADE AWARE.
[2023-01-05 14:14] LABS: BASOPHILS # (AUTO) 0.1 K/uL (0.00-0.22); BASOPHILS % (AUTO) 1.7 % (0.0-2.0); EOSINOPHILS # (AUTO) 0.3 K/uL (0-0.4); EOSINOPHILS % (AUTO) 5.3 % (0.0-4.0); HEMATOCRIT 26.9 % (36-52); HEMOGLOBIN 8.9 g/dL (12.0-18.0); LYMPHOCYTES # (AUTO) 0.7 K/uL (2.0-11.5); LYMPHOCYTES % (AUTO) 11.7 % (20.5-51.1); MEAN CORPUSCULAR HEMOGLOBIN 31 pg (27-31); MEAN CORPUSCULAR HGB CONC 33 g/dL (33-37); MEAN CORPUSCULAR VOLUME 93.4 fL (80-94); MONOCYTES # (AUTO) 0.6 K/uL (0.8-1.0); MONOCYTES % (AUTO) 10.2 % (1.7-9.3); NEUTROPHILS # (AUTO) 4.1 K/uL (1.8-7.7); NEUTROPHILS % (AUTO) 71.1 % (42.2-75.2); PLATELET COUNT (AUTO) 169 K/uL (140-450); RED BLOOD CELL COUNT(AUTO) 2.88 MIL/uL (4.20-6.10); RED CELL DISTRIBUTION WIDTH 19.2 % (11.6-13.7)
--- NOTE | 2023-01-05 14:20 | NUR ---
SEEN AND EXAMINED BY DR. SALGADO AT BEDSIDE, ORDERS RECEIVED.
[2023-01-05 14:38] LABS: MAGNESIUM 2.4 mg/dL (1.8-2.4); PHOSPHORUS 5.1 mg/dL (2.5-4.9)
[2023-01-05 14:40] LABS: WHITE BLOOD COUNT (AUTO) 5.7 K/uL (4.8-10.8)
[2023-01-05 14:51] LABS: ANION GAP 18.1 (8-16); CHLORIDE 102 mmol/L (98-107); CREATININE 3.2 mg/dL (0.6-1.3); GLUCOSE 159 mg/dL (74-106); POTASSIUM 4.1 mmol/L (3.5-5.1); SODIUM SERUM 138 mmol/L (136-145); UREA NITROGEN, BLOOD 38 mg/dL (7-18)
[2023-01-05] MEDS ORDERED: ALTEPLASE 2 MG VIAL MC SCH (15:00)
[2023-01-05] MEDS: SODIUM BICARBONATE 8.4% PFS 50 MEQ/50 ML SYR IVP SCH ×3 (15:09→20:02)
--- NOTE | 2023-01-05 15:34 | NUR ---
SEEN AND EXAMINED BY DR. LORA. NO NEW ORDERS.
--- NOTE | 2023-01-05 16:18 | NUR ---
01/05/23 RD FOLLOW UP COMPLETED PLEASE REFER TO NUTRITION ASSESSMENT UNDER CARE ACTIVITY FOR ESTIMATED NUTRITIONAL NEEDS. 1. WHEN/IF MEDICALLY APPROPRIATE TO BEGIN PO DIET, RECOMMEND RENAL DIET WITH TEXTURE MODIFICATIONS PER ST SWALLOW EVAL RECOMMENDATIONS TOLERATED 2. IF TF GOING TO BE RESUMED, RECOMMEND NEPRO 1.8 AT GOAL RATE 40 ML/HR, FWF 50 ML Q6H -PROVIDES 960 ML VOLUME, 1728 KCAL, 78 GM PROTEIN AND 897 ML FREE WATER DAILY MEETING 86% ESTIMATED KCAL AND 97% ESTIMATED PROTEIN NEEDS; ADEQUATE -START TF AT 1O ML/HR INCREASE BY 1O ML Q4H UNTIL GOAL IS REACHED TOLERATED 3. MONITOR PO INTAKE, GI SYMPTOMS, AND NUTRITION RELATED LAB VALUES 4. CONSULT RD PRN 5. RD TO FOLLOW-UP 2-3 DAYS, HIGH RISK REVIEWED BY MARK OLMSTEAD RD
--- NOTE | 2023-01-05 17:06 | NUR ---
NOTIFIED DR. SALGADO OF LACTIC ACID AND TROPONIN. NO NEW ORDERS.
[2023-01-05] MEDS: NOREPINEPHRINE 8 MG in DEXTROSE 5% 250 ML IV PRN (18:00)
[2023-01-05] MEDS: NYSTATIN POW 100 MU/GM 15 GM BTL TP SCH ×2 (18:00→21:13)
--- NOTE | 2023-01-05 19:28 | NUR ---
ENDORSED BEDSIDE REPORT TO JANUARY, SECURITY DIRECTOR DIGITAL STRATEGIST SENIOR MANAGER, FOR CONTINUITY OF CARE.
[2023-01-05] MEDS: SENNA 8.6 MG TAB PO SCH ×2 (21:00→21:12)
[2023-01-05] MEDS ORDERED: VANCOMYCIN 750 MG in DEXTROSE 5% 250 ML IV SCH (21:00)
[2023-01-06] VITALS (29 sets, daily range): BP systolic 90–143; BP diastolic 56–96
[2023-01-06] MEDS: SODIUM BICARBONATE 8.4% PFS 50 MEQ/50 ML SYR IVP SCH ×6 (00:45→20:35)
[2023-01-06] MEDS: IPRATROPIUM 0.02% 0.5 MG/2.5 ML NEBU INH SCH ×4 (01:01→20:55)
[2023-01-06] MEDS: ALBUTEROL 0.083% 2.5 MG/3 ML NEBU INH SCH ×4 (01:01→20:55)
[2023-01-06] MEDS: HYDRAGUARD CREAM TP SCH ×2 (01:07→13:00)
[2023-01-06] MEDS: PROPOFOL 1000 MG/100 ML PREMIX 100 ML IV PRN ×3 (01:07→20:27)
[2023-01-06] MEDS: NOREPINEPHRINE 8 MG in DEXTROSE 5% 250 ML IV PRN (03:55)
[2023-01-06] MEDS: PIPERACILLIN/TAZOBACTAM 2.25 GM in DEXTROSE 5% 50 ML IV SCH ×3 (04:07→20:35)
--- NOTE | 2023-01-06 06:00 | NUR ---
Pt. remains on vent via ETT with O2Sat @ 92 to 99% on 50 % FiO2; minimal secretions suctioned. A. fib on the scope. On lLevophed Drip @ 10 mcg to keep SBP>90 mmHg. Trop. 91; trending up. Dr. Piper made aware with no new orders. Repositioned. Kept cllean and dry. On Jonathan SWR to prevent extubation; sedated on Propofol to keep RASS-2 to -3. Will cont. to monitor.
[2023-01-06 07:02] LABS: BASOPHILS # (AUTO) 0.2 K/uL (0.00-0.22); BASOPHILS % (AUTO) 1.3 % (0.0-2.0); EOSINOPHILS # (AUTO) 0.4 K/uL (0-0.4); EOSINOPHILS % (AUTO) 3.6 % (0.0-4.0); HEMATOCRIT 29.7 % (36-52); HEMOGLOBIN 9.5 g/dL (12.0-18.0); LYMPHOCYTES # (AUTO) 0.7 K/uL (2.0-11.5); LYMPHOCYTES % (AUTO) 6.3 % (20.5-51.1); MEAN CORPUSCULAR HEMOGLOBIN 31 pg (27-31); MEAN CORPUSCULAR HGB CONC 32 g/dL (33-37); MEAN CORPUSCULAR VOLUME 95.6 fL (80-94); MONOCYTES # (AUTO) 0.4 K/uL (0.8-1.0); MONOCYTES % (AUTO) 3.8 % (1.7-9.3); PLATELET COUNT (AUTO) 149 K/uL (140-450); RED BLOOD CELL COUNT(AUTO) 3.11 MIL/uL (4.20-6.10); RED CELL DISTRIBUTION WIDTH 19.4 % (11.6-13.7); WHITE BLOOD COUNT (AUTO) 11.7 K/uL (4.8-10.8)
[2023-01-06] MEDS: BUDESONIDE 0.5 MG/2 ML NEBU INH SCH ×2 (07:24→20:55)
--- NOTE | 2023-01-06 07:30 | NUR ---
RECEIVED REPORT FROM JANUARY RN PT HAS INTUBATED . ETT TO VENT ACVC FIO2 30%VT 500 RATE18 PEEP 5 SAT 100 .SKIN DRY AND WARM TO TOUCH, ABDO CHERYL SOFT ALFRED CATH DRAIN CLEAR YELLOW URINE SMALL AMOUNT.
--- NOTE | 2023-01-06 07:40 | NUR ---
PT BOTH ARM IS WEEPING , NG TUBE INSERTED , CHEST XRAY ORDERED,
[2023-01-06 07:43] LABS: ANION GAP 17.3 (8-16); CARBON DIOXIDE 26.6 mmol/L (21-32); CHLORIDE 102 mmol/L (98-107); CREATININE 3.1 mg/dL (0.6-1.3); GLUCOSE 91 mg/dL (74-106); POTASSIUM 3.9 mmol/L (3.5-5.1); SODIUM SERUM 142 mmol/L (136-145); UREA NITROGEN, BLOOD 37 mg/dL (7-18)
[2023-01-06 08:08] LABS: MAGNESIUM 2.2 mg/dL (1.8-2.4); PHOSPHORUS 5.4 mg/dL (2.5-4.9)
[2023-01-06] MEDS: NYSTATIN POW 100 MU/GM 15 GM BTL TP SCH ×2 (09:00→21:19)
[2023-01-06] MEDS: PANTOPRAZOLE 40 MG INJ VIAL IVP SCH ×2 (09:00→20:34)
--- NOTE | 2023-01-06 10:57 | NUR ---
SEEN BY DR. OLMSTEAD AT BED SIDE CRDER RECEIVED WILL START TUBE FEEDING,
--- NOTE | 2023-01-06 11:20 | NUR ---
WOUND CARE RE-EVALUATION NOTE: NO NEW SKIN BREAKS, BILATERAL UPPER EXTREMITIES WEEPING SKIN WITH ABSORBANT PAD IN PLACE AND ELEVATED WITH PILLOW. BLE REMAIN MOTTLED INTACT SKIN. BILATERAL HEELS BLANCHABLE REDNESS WITH PILLOWS OFFLOADING AND HEEL PROTECTORS IN PLACE. PT. WITH LOW VERA SCALE AT HIGH RISK, CONTINUE TO FOLLOW CURRENT PRESSURE WOUNDS PREVENTION INTERVENTIONS. POC DISCUSSED WITH PRIMARY RN.
[2023-01-06] MEDS: MIDODRINE 5 MG TAB PO SCH ×3 (12:00→20:34)
[2023-01-06] MEDS: LORazepam 2 MG/ML VIAL IVP PRN ×2 (17:27→18:30)
--- NOTE | 2023-01-06 17:50 | NUR ---
DR. HUSSEIN CALLED TO INFORM THAT PT. CONTINUE TO ATRIEL FIBRILLATIONS AT THE RATE OF 130 - 140AFTER ATIVAN 1MG WAS GIVEN PT ALSO ON PROPOFOL AT 25 MCG/KG/MIN. HE OODER TO GIVE MORPHIN SULFATE 4 MG IVPUSH/ ONCE.
--- NOTE | 2023-01-06 18:03 | NUR ---
MORPHINE 4MG IVP GIVEN ORDERED.
[2023-01-06] MEDS ORDERED: MORPHINE SULFATE 4 MG/ML SYR IVP PRN (18:25)
--- NOTE | 2023-01-06 18:49 | NUR ---
PT SLEEPING HR 124/MIN.
[2023-01-06] MEDS: SENNA 8.6 MG TAB PO SCH ×2 (20:34→20:38)
--- NOTE | 2023-01-06 20:55 | NUR ---
RECEIVED REPORT FROM AM SHIFT. PATIENT WAS SEEN AND ASSESSED. PATIENT IS INTUBATED BUT AWAKE AND ALERT WITH ETT SIZE 7.5 AND SECURED WITH A BITING BLOCK ANCHOR-FAST 24cm @ GUM. PATIENT IS ON VENTILATOR SUPPORT. VENT SETTINGS: AC/VC RR 18, VT 500, PEEP 5, FiO2 30% WITH SPO2 OF 98%. VENTILATOR PLUGGED IN RED OUTLET. VENTILATOR ALARMS SET APPROPRIATELY AND AUDIBLE TO ENVIRONMENT. AMBU BAG AT BEDSIDE. HEAD OF BED GREATER THAN 30 DEGREES. NOTICED ADEQUATE BILATERAL CHEST RISE AND FALL. PATIENT IS IN NO RESPIRATORY DISTRESS AT THIS TIME. SUCTIONED SMALL KEN THICK SECRETIONS FROM ETT AND SMALL WHITE THIN ORALLY. ORAL CARE WAS DONE AND PT TOLERATED WELL. HHN TX GIVEN ORDERED AND PT TOLERATED TX WELL WITH NO ADVERSE REACTION. BILATERAL BREATH SOUNDS ON AUSCULTATION; UPPER LOBES: CLEAR DIMINISHED LOWER LOBES: DIMINISHED
[2023-01-06] MEDS ORDERED: MENTHOL/ZINC OXIDE 113 GM TUBE TP PRN (22:00)
[2023-01-07] VITALS (25 sets, daily range): BP systolic 92–155; BP diastolic 53–92
[2023-01-07] MEDS: IPRATROPIUM 0.02% 0.5 MG/2.5 ML NEBU INH SCH ×4 (00:11→19:16)
[2023-01-07] MEDS: ALBUTEROL 0.083% 2.5 MG/3 ML NEBU INH SCH ×4 (00:11→19:17)
--- NOTE | 2023-01-07 00:12 | NUR ---
AT BEDSIDE, PT's HR IN 120s. HHN TXs NOT GIVEN. NO WHEEZING.
[2023-01-07] MEDS: LABETALOL 20 MG/4 ML VIAL IVP PRN ×2 (01:42→20:42)
[2023-01-07] MEDS: HYDRAGUARD CREAM TP SCH ×2 (01:51→12:30)
[2023-01-07] MEDS: PROPOFOL 1000 MG/100 ML PREMIX 100 ML IV PRN ×4 (04:15→21:58)
[2023-01-07] MEDS: PIPERACILLIN/TAZOBACTAM 2.25 GM in DEXTROSE 5% 50 ML IV SCH ×3 (04:21→21:10)
[2023-01-07] MEDS: SODIUM BICARBONATE 8.4% PFS 50 MEQ/50 ML SYR IVP SCH ×3 (05:17→08:33)
--- NOTE | 2023-01-07 06:00 | NUR ---
Pt. remains sedated on Propofol Drip. On Levophed Drip to keep SBP>90 mmHg. A. fib on the scope w/ occ. PVCs. Trandate given x 1 for HR > 100 bpm. On vent via ETT with C5Hny=128% on FiO2 of 25%. Oral care done with chlorhexidine. Beckman catheter drained adequately @ this time. Repositioned for comfort. Kept clean and dry. Needs met. Will cont. to monitor.
[2023-01-07 06:13] LABS: ANION GAP 12.9 (8-16); CARBON DIOXIDE 32.3 mmol/L (21-32); CHLORIDE 103 mmol/L (98-107); CREATININE 3.1 mg/dL (0.6-1.3); GLUCOSE 92 mg/dL (74-106); POTASSIUM 3.2 mmol/L (3.5-5.1); SODIUM SERUM 145 mmol/L (136-145); UREA NITROGEN, BLOOD 38 mg/dL (7-18)
[2023-01-07 06:18] LABS: BASOPHILS # (AUTO) 0.2 K/uL (0.00-0.22); BASOPHILS % (AUTO) 1.9 % (0.0-2.0); EOSINOPHILS # (AUTO) 0.5 K/uL (0-0.4); EOSINOPHILS % (AUTO) 5.4 % (0.0-4.0); HEMATOCRIT 22.2 % (36-52); HEMOGLOBIN 7.4 g/dL (12.0-18.0); LYMPHOCYTES # (AUTO) 1.2 K/uL (2.0-11.5); MEAN CORPUSCULAR HEMOGLOBIN 31 pg (27-31); MEAN CORPUSCULAR HGB CONC 33 g/dL (33-37); MEAN CORPUSCULAR VOLUME 94.1 fL (80-94); MONOCYTES # (AUTO) 0.5 K/uL (0.8-1.0); MONOCYTES % (AUTO) 5.6 % (1.7-9.3); NEUTROPHILS # (AUTO) 6.4 K/uL (1.8-7.7); NEUTROPHILS % (AUTO) 73.1 % (42.2-75.2); PLATELET COUNT (AUTO) 140 K/uL (140-450); RED BLOOD CELL COUNT(AUTO) 2.36 MIL/uL (4.20-6.10); RED CELL DISTRIBUTION WIDTH 19.3 % (11.6-13.7); WHITE BLOOD COUNT (AUTO) 8.7 K/uL (4.8-10.8)
[2023-01-07 06:22] LABS: PHOSPHORUS 4.6 mg/dL (2.5-4.9)
[2023-01-07] MEDS: BUDESONIDE 0.5 MG/2 ML NEBU INH SCH ×2 (07:37→19:17)
[2023-01-07] MEDS: MIDODRINE 5 MG TAB PO SCH ×3 (07:39→17:41)
[2023-01-07] MEDS: NYSTATIN POW 100 MU/GM 15 GM BTL TP SCH ×2 (08:32→20:51)
[2023-01-07] MEDS: PANTOPRAZOLE 40 MG INJ VIAL IVP SCH ×2 (08:52→20:50)
--- NOTE | 2023-01-07 16:54 | NUR ---
01/07/23 RD FOLLOW UP COMPLETED. PLEASE REFER TO NUTRITION ASSESSMENT UNDER CARE ACTIVITY FOR ESTIMATED NUTRITIONAL NEEDS. 1.WHEN/IF MEDICALLY APPROPRIATE TO INITIATE TUBE FEED, RECOMMEND NEPRO 1.8 AT GOAL RATE 40 ML/HR RECOMMENDED BY RD 01/05/23. -START AT 10 ML/HR, INCREASING BY 10 ML Q4H UNTIL GOAL IS REACHED -FWF 50 ML Q6H -PROVIDES 960 ML VOLUME, 1728 KCAL, 78 GM PROTEIN AND 672 ML FREE WATER DAILY. WITH PROPOFOL @ 13.599 ML/HR (PROVIDES 359 KCAL), THIS MEETS 100% ESTIMATED KCAL AND 98% ESTIMATED PROTEIN NEEDS; ADEQUATE 2. MONITOR NPO STATUS 3. CONSULT RD PRN 4. RD TO FOLLOW-UP 2-3 DAYS, HIGH RISK ZAYDA CATES RD
[2023-01-07] MEDS ORDERED: VANCOMYCIN 500 MG in DEXTROSE 5% 100 ML IV SCH (19:00)
[2023-01-07] MEDS: SENNA 8.6 MG TAB PO SCH (20:51)
[2023-01-08] VITALS (26 sets, daily range): BP systolic 101–173; BP diastolic 40–103
[2023-01-08] MEDS: IPRATROPIUM 0.02% 0.5 MG/2.5 ML NEBU INH SCH ×4 (00:34→19:00)
[2023-01-08] MEDS: ALBUTEROL 0.083% 2.5 MG/3 ML NEBU INH SCH ×4 (00:34→19:10)
[2023-01-08] MEDS: MIDODRINE 5 MG TAB PO SCH ×5 (00:39→23:15)
[2023-01-08] MEDS: HYDRAGUARD CREAM TP SCH ×2 (00:58→12:13)
[2023-01-08] MEDS: LABETALOL 20 MG/4 ML VIAL IVP PRN (02:34)
[2023-01-08] MEDS: PROPOFOL 1000 MG/100 ML PREMIX 100 ML IV PRN ×4 (04:50→21:22)
[2023-01-08] MEDS: PIPERACILLIN/TAZOBACTAM 2.25 GM in DEXTROSE 5% 50 ML IV SCH ×3 (04:52→20:25)
[2023-01-08 05:46] LABS: BASOPHILS # (AUTO) 0.1 K/uL (0.00-0.22); BASOPHILS % (AUTO) 1.8 % (0.0-2.0); EOSINOPHILS # (AUTO) 0.5 K/uL (0-0.4); EOSINOPHILS % (AUTO) 6.9 % (0.0-4.0); HEMATOCRIT 24.3 % (36-52); LYMPHOCYTES # (AUTO) 1.1 K/uL (2.0-11.5); LYMPHOCYTES % (AUTO) 16.2 % (20.5-51.1); MEAN CORPUSCULAR HEMOGLOBIN 31 pg (27-31); MEAN CORPUSCULAR HGB CONC 33 g/dL (33-37); MEAN CORPUSCULAR VOLUME 94.6 fL (80-94); MONOCYTES # (AUTO) 0.6 K/uL (0.8-1.0); MONOCYTES % (AUTO) 8.4 % (1.7-9.3); NEUTROPHILS # (AUTO) 4.4 K/uL (1.8-7.7); NEUTROPHILS % (AUTO) 66.7 % (42.2-75.2); PLATELET COUNT (AUTO) 147 K/uL (140-450); RED BLOOD CELL COUNT(AUTO) 2.56 MIL/uL (4.20-6.10); RED CELL DISTRIBUTION WIDTH 20.2 % (11.6-13.7); WHITE BLOOD COUNT (AUTO) 6.6 K/uL (4.8-10.8)
--- NOTE | 2023-01-08 06:00 | NUR ---
Pt. remains sedated on Propofol Drip w/ RASS -2. A. Fib on the monitor with HR 100 to 128 bpm; medicated with Labatolol IVP x 2 to keep HR <100 bpm. On Levophed Drip to keep SBP>90 mmHg. Pt. had a 5 beat run of V. Tach x 1; will make MD aware. On vent via ETT with D7Qgo=69 to 99% on O2 21%. On Jonathan. SWR with no injuries noted. Will cont. to monitor.
[2023-01-08 06:26] LABS: ANION GAP 13.3 (8-16); CARBON DIOXIDE 28.5 mmol/L (21-32); CHLORIDE 104 mmol/L (98-107); CREATININE 2.1 mg/dL (0.6-1.3); GLUCOSE 83 mg/dL (74-106); POTASSIUM 3.8 mmol/L (3.5-5.1); SODIUM SERUM 142 mmol/L (136-145); UREA NITROGEN, BLOOD 22 mg/dL (7-18)
[2023-01-08 06:37] LABS: MAGNESIUM 1.6 mg/dL (1.8-2.4); PHOSPHORUS 3.2 mg/dL (2.5-4.9)
[2023-01-08] MEDS: BUDESONIDE 0.5 MG/2 ML NEBU INH SCH ×2 (07:32→19:10)
--- NOTE | 2023-01-08 07:33 | NUR ---
Pulm is being given while waiting for pharmacy to refill meds. A/A are out of stock as of now. will give once it is filled. no distress noted.
[2023-01-08] MEDS ORDERED: MAG SULF 2000 MG/WATER PREMIX 50 ML IV ONE (08:30)
[2023-01-08] MEDS: NYSTATIN POW 100 MU/GM 15 GM BTL TP SCH ×2 (09:16→20:26)
[2023-01-08] MEDS: PANTOPRAZOLE 40 MG INJ VIAL IVP SCH ×2 (09:16→20:25)
--- NOTE | 2023-01-08 09:30 | NUR ---
Levophed Drip held. A. fib on the scope 97 to 120 bpm. Pt. remains on Propofol Drip @ 30 mcg/Kg/min for sedation. K+=1.6; Dr. Pappas made aware with orders for MgSO4 2 grams over 2 hours noted and carried out. Due meds adm. Cardiac and resp. monitoring cont. Daughter @ bedside updated on pt. condition. Needs met. Will cont. to monitor.
--- NOTE | 2023-01-08 09:45 | NUR ---
RECEIVED BEDSIDE REPORT FROM SUPERVISOR TILE AND MOTTLE RN FOR CONTINUITY OF CARE. PT SEDATED A/OX0. ETT TO VENT. TLC TO RIJ INFUSING PROPOFOL AT 30 MCG/KG/MIN AND NS TKO. LEVOPHED REMAINS OFF. AFIB RVR ON MONITOR. NGT IN PLACE, CLAMPED. HD CATH TO LIJ. F/C TO GRAVITY. GENERALIZED WEAKNESS. STANDARD PRECAUTION. HOB 30 DEGREES. BED LOCKED AND IN LOWEST POSITION.
[2023-01-08] MEDS: FUROSEMIDE 100 MG/10 ML VIAL IV SCH ×2 (10:13→20:23)
[2023-01-08] MEDS: metOLazone 5 MG TAB PO SCH (10:14)
--- NOTE | 2023-01-08 10:20 | NUR ---
SEEN AND EXAMINED BY DR. OLMSTEAD, NO NEW ORDERS.
--- NOTE | 2023-01-08 13:50 | NUR ---
SEEN AND EXAMINED BY DR. GIBSON. NO NEW ORDERS.
[2023-01-08] MEDS ORDERED: VANCOMYCIN 750 MG in DEXTROSE 5% 250 ML IV SCH (15:00)
--- NOTE | 2023-01-08 17:43 | NUR ---
changed ETT Elizabeth and naz
--- NOTE | 2023-01-08 19:30 | NUR ---
ENDORSED BEDSIDE REPORT TO JAKE, MICROFILM CAMERA OPERATOR RN, FOR CONTINUITY OF CARE.
--- NOTE | 2023-01-08 19:30 | NUR ---
RECEIVED PATIENT AND ASSESSMENT DONE AND COMPLETED.AFEBRILE.SEDATED ON PROPOFOL AT 30MCG.REMAINS AFIB ON THE MONITOR HR 119.ON VENT SETTINGS ACVC 18 TV 500 FIO2 21% PEEP5. WITH O2 SAT AT100%.LUNG SOUNDS WITH RHONCHI THROUGHOUT.ABDOMEN ROUND,SOFT AND NON TENDER WITH + BS X4 QUADS. NGT PATENT AND INTACT ,STILL NPO EXCEPT MED.PULSES PRESENT AND PALPABLE RT IJ AND LEFT IJ PATENT ,INTACT AND BENIGN.WILL CONTINUE TO PROCEED WITH CARE PLAN.
[2023-01-08] MEDS: SENNA 8.6 MG TAB PO SCH (20:25)
[2023-01-09] VITALS (27 sets, daily range): BP systolic 114–150; BP diastolic 68–96
[2023-01-09] MEDS: HYDRAGUARD CREAM TP SCH ×2 (00:10→12:32)
[2023-01-09] MEDS: IPRATROPIUM 0.02% 0.5 MG/2.5 ML NEBU INH SCH ×3 (01:06→20:05)
[2023-01-09] MEDS: ALBUTEROL 0.083% 2.5 MG/3 ML NEBU INH SCH ×3 (01:06→20:05)
[2023-01-09] MEDS: PROPOFOL 1000 MG/100 ML PREMIX 100 ML IV PRN ×4 (03:37→21:35)
[2023-01-09] MEDS: PIPERACILLIN/TAZOBACTAM 2.25 GM in DEXTROSE 5% 50 ML IV SCH ×3 (04:07→21:40)
[2023-01-09] MEDS: MIDODRINE 5 MG TAB PO SCH ×3 (05:38→17:44)
[2023-01-09 06:05] LABS: ANION GAP 15.5 (8-16); CARBON DIOXIDE 25.8 mmol/L (21-32); CHLORIDE 98 mmol/L (98-107); CREATININE 2.6 mg/dL (0.6-1.3); GLUCOSE 75 mg/dL (74-106); POTASSIUM 3.3 mmol/L (3.5-5.1); SODIUM SERUM 136 mmol/L (136-145); UREA NITROGEN, BLOOD 25 mg/dL (7-18)
[2023-01-09 06:22] LABS: MAGNESIUM 2.2 mg/dL (1.8-2.4); PHOSPHORUS 4.4 mg/dL (2.5-4.9)
--- NOTE | 2023-01-09 07:00 | NUR ---
ENDORSED TO GARTH ROBISON SHIFT RN FOR CONTINUITY OF CARE.
--- NOTE | 2023-01-09 07:30 | NUR ---
Received pt sedated. ETT to vent AC VC TV 500 rate 18 PEEP 5 FiO2@21%. A fib on monitor. NG-tube on right nare clamped. Beckman catheter intact and draining to bedside drainage. Central line on right IJ intact and patent infusing Propofol@30 mcg/kg/min and NS@TKO. Dialysis catheter on Left IJ intact. Safety precautions in place.
[2023-01-09] MEDS: PANTOPRAZOLE 40 MG INJ VIAL IVP SCH ×2 (08:10→21:37)
[2023-01-09] MEDS: FUROSEMIDE 100 MG/10 ML VIAL IV SCH ×2 (08:11→21:37)
[2023-01-09] MEDS: metOLazone 5 MG TAB PO SCH (08:11)
[2023-01-09] MEDS: NYSTATIN POW 100 MU/GM 15 GM BTL TP SCH ×2 (08:11→21:38)
--- NOTE | 2023-01-09 08:15 | NUR ---
Seen and examined by Dr. Pappas. New orders received.
[2023-01-09] MEDS ORDERED: POTASSIUM CHLORIDE 10 MEQ TABER PO SCH (08:23)
[2023-01-09] MEDS ORDERED: POTASSIUM CHLORIDE 20% 40 MEQ/15 ML UDC GT SCH ×2 (08:29→08:46)
--- NOTE | 2023-01-09 08:45 | NUR ---
Dr. Mayo at bedside examining patient. New orders received for potassium chloride 40meq via NG-tube once. Per Dr. Mayo, pt is making good urine output and labs are okay so no HD today. Addendum: 01/09/23 at 0847 by Dora Barajas RN New order for additional K-Jordan 20mEQ.
[2023-01-09] MEDS ORDERED: KCL 20 MEQ IN 100 mL PREMIX 100 ML IV SCH (08:49)
[2023-01-09] MEDS: SPIRONOLACTONE 25 MG TAB PO SCH ×2 (09:11→17:44)
[2023-01-09] MEDS: ACETAMINOPHEN 325 MG TAB PO PRN (09:55)
--- NOTE | 2023-01-09 10:21 | NUR ---
Dr. Smith at bedside examining patient. Dr. Smith called daughter and updated on pt status. arrived at bedside and gave updates as well.
[2023-01-09] MEDS: BUDESONIDE 0.5 MG/2 ML NEBU INH SCH ×2 (11:30→20:04)
[2023-01-09] MEDS: MORPHINE SULFATE 2 MG/ML SYR IVP PRN (13:15)
--- NOTE | 2023-01-09 16:54 | NUR ---
01/09/23 RD FOLLOW UP COMPLETED PLEASE REFER TO NUTRITION ASSESSMENT UNDER CARE ACTIVITY FOR ESTIMATED NUTRITIONAL NEEDS. 1. MONITOR NPO STATUS 2. WHEN/IF MEDICALLY APPROPRIATE TO BEGIN TUBE FEED, RECOMMEND NEPRO 1.8 AT GOAL RATE 40 ML/HR -START AT 10 ML/HR, INCREASING BY 10 ML Q4H UNTIL GOAL IS REACHED -FWF 50 ML Q6H -PROVIDES 960 ML VOLUME, 1728 KCAL, 78 GM PROTEIN AND 672 ML FREE WATER DAILY. WITH PROPOFOL @ 13.599 ML/HR (PROVIDES 359 KCAL), THIS MEETS 100% ESTIMATED KCAL AND 98% ESTIMATED PROTEIN NEEDS; ADEQUATE 3. CONSULT RD PRN 4. RD TO FOLLOW-UP 2-3 DAYS, HIGH RISK REVIEWED BY MARK OLMSTEAD RD
--- NOTE | 2023-01-09 19:10 | NUR ---
Endorsed to shift foreman nurse Ines for continuity of care.
[2023-01-09] MEDS: SENNA 8.6 MG TAB PO SCH (21:42)
[2023-01-10] VITALS (28 sets, daily range): BP systolic 97–160; BP diastolic 51–99
[2023-01-10] MEDS: ALBUTEROL 0.083% 2.5 MG/3 ML NEBU INH SCH ×5 (00:47→19:57)
[2023-01-10] MEDS: IPRATROPIUM 0.02% 0.5 MG/2.5 ML NEBU INH SCH ×5 (00:47→19:57)
[2023-01-10] MEDS: HYDRAGUARD CREAM TP SCH ×2 (01:00→12:05)
[2023-01-10] MEDS: MIDODRINE 5 MG TAB PO SCH ×5 (01:58→17:07)
[2023-01-10] MEDS: PROPOFOL 1000 MG/100 ML PREMIX 100 ML IV PRN ×4 (03:35→19:57)
[2023-01-10] MEDS: PIPERACILLIN/TAZOBACTAM 2.25 GM in DEXTROSE 5% 50 ML IV SCH ×3 (05:57→21:54)
[2023-01-10 06:19] LABS: ANION GAP 15.1 (8-16); CARBON DIOXIDE 26.5 mmol/L (21-32); CHLORIDE 96 mmol/L (98-107); CREATININE 2.9 mg/dL (0.6-1.3); GLUCOSE 77 mg/dL (74-106); POTASSIUM 3.6 mmol/L (3.5-5.1); SODIUM SERUM 134 mmol/L (136-145); UREA NITROGEN, BLOOD 27 mg/dL (7-18)
[2023-01-10 06:25] LABS: MAGNESIUM 1.8 mg/dL (1.8-2.4)
--- NOTE | 2023-01-10 07:46 | NUR ---
Received pt afebrile and sedated. ETT to vent settings AC VC TV 500 rate 18 PEEP 5 FiO2@21%. A fib on monitor. NG-tube on right nare intact and in place. Beckman catheter draining to gravity. Bilat soft wrist restraints in place. Central line on right IJ intact and patent infusing Propofol@30mcg/kg/min and NS@TKO. Dialysis catheter intact on LIJ. Safety precautions in place.
[2023-01-10] MEDS: BUDESONIDE 0.5 MG/2 ML NEBU INH SCH ×2 (07:59→19:57)
--- NOTE | 2023-01-10 08:10 | NUR ---
Seen and examined by Dr. Pappas. No new orders.
[2023-01-10] MEDS: FUROSEMIDE 100 MG/10 ML VIAL IV SCH (08:30)
[2023-01-10] MEDS: metOLazone 5 MG TAB PO SCH (08:31)
[2023-01-10] MEDS: SPIRONOLACTONE 25 MG TAB PO SCH ×2 (08:31→17:07)
[2023-01-10] MEDS: PANTOPRAZOLE 40 MG INJ VIAL IVP SCH ×2 (08:31→21:54)
[2023-01-10] MEDS: NYSTATIN POW 100 MU/GM 15 GM BTL TP SCH ×2 (08:31→22:51)
--- NOTE | 2023-01-10 09:03 | NUR ---
Seen and examined by Dr. Mayo.
--- NOTE | 2023-01-10 10:02 | NUR ---
Seen and examined by Dr. Smith. Updated on pt status overnight with no change. No further orders. Addendum: 01/10/23 at 1004 by Dora Barajas RN Per Dr. Smith, family decided for extubation with comfort measures .
--- NOTE | 2023-01-10 19:15 | NUR ---
Endorsed to retail shift manager nurse Ines for continuity of care.
[2023-01-10] MEDS: SENNA 8.6 MG TAB PO SCH (21:55)
[2023-01-11] VITALS (26 sets, daily range): BP systolic 63–149; BP diastolic 38–100
[2023-01-11] MEDS: MIDODRINE 5 MG TAB PO SCH ×2 (00:27→05:53)
[2023-01-11] MEDS: HYDRAGUARD CREAM TP SCH ×2 (00:28→13:04)
[2023-01-11] MEDS: IPRATROPIUM 0.02% 0.5 MG/2.5 ML NEBU INH SCH ×2 (01:50→07:29)
[2023-01-11] MEDS: ALBUTEROL 0.083% 2.5 MG/3 ML NEBU INH SCH ×3 (01:50→12:33)
[2023-01-11] MEDS: PROPOFOL 1000 MG/100 ML PREMIX 100 ML IV PRN (02:09)
[2023-01-11] MEDS: PIPERACILLIN/TAZOBACTAM 2.25 GM in DEXTROSE 5% 50 ML IV SCH (05:52)
--- NOTE | 2023-01-11 07:00 | NUR ---
RECEIVED PT ON ACVC 18,500,+5,21%. VENT WHEELS ARE LOCKED AND PLUGGED INTO RED OUTLET, AMBUBAG AT BEDSIDE, ALARMS ARE SET AND AUDIBLE. ETT SECURED 8.0@24CM GUM. BREATH SOUNDS WERE CLEAR WITH AN EXPIRATORY WHEEZE. WILL CONTINUE TO MONITOR.
[2023-01-11] MEDS: BUDESONIDE 0.5 MG/2 ML NEBU INH SCH (07:29)
[2023-01-11] MEDS ORDERED: MORPHINE SULFATE 50 MG in NACL 0.9% 45 ML IV PRN ×2 (08:00→09:55)
--- NOTE | 2023-01-11 08:00 | NUR ---
ASSUMED CARE OF PATIENT AT THIS TIME. PATEINT INTUBATED WITH PROPOFOL GTT INFUSING AT 30MCG/KG/MIN. PATIENT RELAXED AND OPENS EYES AT TIMES. ALFRED CATH TO GRAVITY DRAINING CLEAR YELLOW URINE. VITAL SIGNS STABLE. NO ACUTE DISTRESS NOTED. WILL CONTINUE TO MONITOR FOR SAFETY. Michael SMITH RN.
[2023-01-11] MEDS ORDERED: PROPOFOL 1000 MG/100 ML PREMIX 100 ML IV PRN (08:15)
[2023-01-11] MEDS: PANTOPRAZOLE 40 MG INJ VIAL IVP SCH (08:24)
[2023-01-11] MEDS: NYSTATIN POW 100 MU/GM 15 GM BTL TP SCH (08:26)
[2023-01-11] MEDS: SPIRONOLACTONE 25 MG TAB PO SCH (08:26)
[2023-01-11] MEDS ORDERED: FUROSEMIDE 100 MG/10 ML VIAL IV SCH (09:00)
--- NOTE | 2023-01-11 09:28 | NUR ---
PATIENT'S DAUGHTER HERE TO VISIT PATIENT AT BEDSIDE. Michael SMITH RN.
[2023-01-11] MEDS ORDERED: SCOPOLAMINE 1.5 MG/72 HR PATCH TD SCH (10:55)
[2023-01-11] MEDS ORDERED: MORPHINE SULFATE 5 MG/ML VIAL IVP SCH (10:55)
[2023-01-11] MEDS ORDERED: GLYCOPYRROLATE 0.2 MG/ML VIAL IV SCH (10:55)
[2023-01-11] MEDS ORDERED: MORPHINE SULFATE 10 MG/ML VIAL IVP SCH (11:15)
--- NOTE | 2023-01-11 11:38 | NUR ---
COMFORT CARE STARTED ORDERED. MORPHINE GTT STARTED AT 4MG/HR, MORPHINE 6MG IVP GIVEN AND SCOPOLAMINE PATCH APPLIED APPLIED ORDERED. DAUGHTER AT BEDSIDE WITH PATIENT. WILL CALL RT TO EXTUBATE PATIENT. Michael SMITH RN.
--- NOTE | 2023-01-11 11:55 | NUR ---
JERALDUL 1MG IVP GIVEN ORDERED. Michael SMITH RN.
--- NOTE | 2023-01-11 12:05 | NUR ---
EXTUBATED FOR COMFORT CARE. PT CURRENTLY ON 3L NASAL CANNULA. WILL CONTINUE TO MONITOR.
--- NOTE | 2023-01-11 12:05 | NUR ---
PATIENT EXTUBATED BY RT AND TOLERATED EXTUBATION WELL. NGT REMOVED AND JARETT WRIST RESTRAINTS REMOVED. DAUGHTER AT BEDSIDE WITH PATIENT FOR SUPPORT. Michael SMITH RN.
--- NOTE | 2023-01-11 12:34 | NUR ---
BREATHING TREATMENT NOT GIVEN DUE TO PT ON COMFORT MEASURES AT THIS TIME.
--- NOTE | 2023-01-11 13:49 | NUR ---
PT IS IN MS DRIP LOOKS COMFORTABLE, THE DAUGHTER JUST STEP OUT FOR BREATH.[id number]
--- NOTE | 2023-01-11 15:00 | NUR ---
PATIENT REMAINS COMFORTABLE ON MORPHINE GTT ON O2 AT 2L NC. NO RESPIRATORY DISTRESS NOTED. DAUGHTER REMAINS AT BEDSIDE FOR SUPPORT. WILL CONTINUE TO MONITOR FOR SAFETY. Michael SMITH RN.
[2023-01-11] MEDS: MORPHINE SULFATE 100 MG in NACL 0.9% 90 ML IV PRN ×6 (16:20→18:54)
--- NOTE | 2023-01-11 18:59 | NUR ---
ENDORSED TO CATALYST OPERATOR GASOLINE NURSE TESSY JOSEPH. TESSY ARREOLA.
--- NOTE | 2023-01-11 19:15 | NUR ---
RECEIVED PATIENT FOR COMFORT MEASURES ONLY AND IS ON MORPHINE DRIP AT 16MG.ON O2 2L VIA NC.REMAINS AFIB ON THE MONITOR HR 135.ALFRED IN PLACE PATENT AND INTACT,DRAINING ADQUATE AMOUNT OF URINE.WILL CONTINUE TO PROCEED WITH CONTINUITY OF CARE.
[2023-01-12] VITALS: BP 59/40
[2023-01-12 01:00] VITALS: BP 58/36
[2023-01-12 02:00] VITALS: BP 53/35
[2023-01-12 03:00] VITALS: BP 57/41
[2023-01-12] MEDS ORDERED: MORPHINE SULFATE 10 MG/ML VIAL ONE ×2 (03:12→03:16)
[2023-01-12 03:24] VITALS: BP 50/34
[2023-01-12] MEDS: MORPHINE SULFATE 100 MG in NACL 0.9% 90 ML IV PRN (03:24)
--- NOTE | 2023-01-12 03:40 | NUR ---
PATIENT WENT INTO ASYSTOLE, NO PULSE NOTED ON AUSCULTATION, PUPILS BOTH FIXED AND DILATED.PRONOUNCED AT 0340.
--- NOTE | 2023-01-12 03:40 | NUR ---
PATIENT AT 0340 AM .TAMARA DAUGHTER NOTIFIED.
== END 2023-01-12 03:40 | DRG 870 ==
LOC: MED 02:36 → MTU 06:20 → MIC 19:50
PROVIDERS: ADMIT Student in an Organized Health Care Education/Training Program; ATTEND Student in an Organized Health Care Education/Training Program
PROC: 5A1955Z Respiratory Ventilation, Greater than 96 Consecutive Hours (ICD-10-PCS; principal; 2022-12-23)
PROC: 02HV33Z Insertion of Infusion Device into Superior Vena Cava, Percutaneous Approach (ICD-10-PCS; 2022-12-23)
PROC: B548ZZA Ultrasonography of Superior Vena Cava, Guidance (ICD-10-PCS; 2022-12-23)
PROC: 30233K1 Transfusion of Nonautologous Frozen Plasma into Peripheral Vein, Percutaneous Approach (ICD-10-PCS; 2022-12-23)
PROC: 0BH17EZ Insertion of Endotracheal Airway into Trachea, Via Natural or Artificial Opening (ICD-10-PCS; 2022-12-23)
PROC: 0W3P8ZZ Control Bleeding in Gastrointestinal Tract, Via Natural or Artificial Opening Endoscopic (ICD-10-PCS; 2022-12-25)
PROC: 02HV33Z Insertion of Infusion Device into Superior Vena Cava, Percutaneous Approach (ICD-10-PCS; 2022-12-25)
PROC: B548ZZA Ultrasonography of Superior Vena Cava, Guidance (ICD-10-PCS; 2022-12-25)
PROC: 5A1D70Z Performance of Urinary Filtration, Intermittent, Less than 6 Hours Per Day (ICD-10-PCS; 2022-12-25)
PROC: 5A12012 Performance of Cardiac Output, Single, Manual (ICD-10-PCS; 2022-12-27)
PROC: 0W3P8ZZ Control Bleeding in Gastrointestinal Tract, Via Natural or Artificial Opening Endoscopic (ICD-10-PCS; 2022-12-27)
PROC: 30233N1 Transfusion of Nonautologous Red Blood Cells into Peripheral Vein, Percutaneous Approach (ICD-10-PCS; 2022-12-27)
PROC: 5A1D70Z Performance of Urinary Filtration, Intermittent, Less than 6 Hours Per Day (ICD-10-PCS; 2022-12-27)
PROC: 5A1D70Z Performance of Urinary Filtration, Intermittent, Less than 6 Hours Per Day (ICD-10-PCS; 2022-12-29)
PROC: 5A1D70Z Performance of Urinary Filtration, Intermittent, Less than 6 Hours Per Day (ICD-10-PCS; 2023-01-01)
PROC: 5A1D70Z Performance of Urinary Filtration, Intermittent, Less than 6 Hours Per Day (ICD-10-PCS; 2023-01-03)
PROC: 5A1D70Z Performance of Urinary Filtration, Intermittent, Less than 6 Hours Per Day (ICD-10-PCS; 2023-01-05)
PROC: 0BH17EZ Insertion of Endotracheal Airway into Trachea, Via Natural or Artificial Opening (ICD-10-PCS; 2023-01-05)
PROC: 5A1955Z Respiratory Ventilation, Greater than 96 Consecutive Hours (ICD-10-PCS; 2023-01-05)
PROC: 5A1D70Z Performance of Urinary Filtration, Intermittent, Less than 6 Hours Per Day (ICD-10-PCS; 2023-01-07)
DX: A41.9 Sepsis, unspecified organism (principal); J96.01 Acute respiratory failure with hypoxia; R65.21 Severe sepsis with septic shock; K26.4 Chronic or unspecified duodenal ulcer with hemorrhage; K29.71 Gastritis, unspecified, with bleeding; K29.81 Duodenitis with bleeding; N17.0 Acute kidney failure with tubular necrosis; J18.9 Pneumonia, unspecified organism; J44.1 Chronic obstructive pulmonary disease with (acute) exacerbation; I48.20 Chronic atrial fibrillation, unspecified; R57.9 Shock, unspecified; J44.0 Chronic obstructive pulmonary disease with (acute) lower respiratory infection; E03.9 Hypothyroidism, unspecified; E86.1 Hypovolemia; I46.9 Cardiac arrest, cause unspecified; R74.01 Elevation of levels of liver transaminase levels; D69.6 Thrombocytopenia, unspecified; D69.9 Hemorrhagic condition, unspecified; D53.9 Nutritional anemia, unspecified; I11.0 Hypertensive heart disease with heart failure; I50.9 Heart failure, unspecified; Z20.822 Contact with and (suspected) exposure to COVID-19; J44.9 Chronic obstructive pulmonary disease, unspecified; Z66 Do not resuscitate; Z87.11 Personal history of peptic ulcer disease; Z79.01 Long term (current) use of anticoagulants; Z99.2 Dependence on renal dialysis
CPT/HCPCS: 31500; 36415; 36430; 36600; 71045; 74018; 76770; 80048; 80053; 80202; 81001; 82272; 82607; 82728; 82746; 82803; 82948; 83540; 83605; 83735; 83880; 84100; 84484; 85025; 85045; 85610; 85730; 86704; 86706; 86708; 86709; 86803; 86886; 86900; 86901; 86920; 87040; 87070; 87081; 87086; 87205; 87340; 89220; 90935; 92950; 93005; 94002; 94003; 94640; 96361; 96365; 96375; 99291; C9113; J0171; J0456; J0610; J0696; J1200; J1364; J1610; J1644; J1940; J2060; J2250; J2270; J2354; J2543; J2597; J2704; J2916; J2920; J2930; J2997; J3010; J3370; J3372; J3475; J3480; J3490; J7030; J7060; J7120; J7613; J7626; J7644; P9016; P9017; P9046; Q0092